=== PATIENT | male | born 1955 | race African-American/Black ===

== ENCOUNTER 2017-03-22 10:21 | Emergency (ER) | payer MEDICAID, OTHER ==
[~2017-03-22] VITALS: Ht 175.3 cm; Wt 80.0 kg
[~2017-03-22 10:21] MED LIST: ALLOPURINOL; AMLO10TA80 PO; ASPI-1073 PO; BENADRYL; DIPH25CA83 PO; HYDR-4134 PO; IBUPROFEN; INDOCIN; LISI40TA4 PO; LISINOPRIL PO; NAPROXEN
[2017-03-22] MEDS ORDERED: MORPHINE SULFATE 4 MG/ML CPJ (NOT FOR IM USE) IV STA (10:44)
[2017-03-22] MEDS ORDERED: ONDANSETRON HCL 4MG/2ML VIAL IV STA (10:44)
[2017-03-22] MEDS ORDERED: SODIUM CHLORIDE 0.9% 1,000 ML IV ONE (10:44)
[2017-03-22] MEDS ORDERED: FAMOTIDINE 20MG/2ML VIAL IV ONE (11:00)
[2017-03-22] MEDS ORDERED: PANTOPRAZOLE SODIUM 40 MG/VIAL IV ONE (11:00)
[2017-03-22 11:02] LABS: BASOPHILS % 0.8 % (0.0-2.0); HEMATOCRIT. 40.8 % (42.0-52.0); HEMOGLOBIN. 13.6 g/dL (14.0-18.0); LYMPHOCYTES % 12.5 % (20.0-50.0); MEAN CORPUSCULAR HEMOGLOBIN 27.2 pg (28.0-32.0); MEAN CORPUSCULAR VOLUME 81.7 fL (80.0-94.0); MEAN PLATELET VOLUME 8.1 fl (7.4-10.4); NEUTROPHILS % 81.7 % (40.0-76.0); PLATELET 246 x1000/uL (130-400); RED BLOOD CELL COUNT 4.99 mill/uL (4.7-6.1); RED CELL DISTRIBUTION WIDTH 14.2 % (11.6-14.6)
[2017-03-22 11:07] LABS: INR 1.1; PARTIAL THROMBOPLASTIN TIME 25.8 sec (24.0-34.0); PROTHROMBIN TIME 10.9 sec
[2017-03-22 11:15] LABS: CARBON DIOXIDE 23 mEq/L (21-32); CHLORIDE 103 mEq/L (98-107)
[2017-03-22] MEDS ORDERED: POTASSIUM CHLORIDE 20MEQ TABLET SR PO ONE (11:45)
[2017-03-22 12:04] LABS: CLARITY URINE CLEAR (CLEAR); COLOR URINE YELLOW (YELLOW); GLUCOSE URINE NEGATIVE (NEGATIVE); KETONES URINE 1+ (NEGATIVE); LEUKOCYTE ESTERASE URINE NEGATIVE (NEGATIVE); NITRITE URINE NEGATIVE (NEGATIVE); OCCULT BLOOD URINE NEGATIVE (NEGATIVE); PH URINE >=9.0 (4.5-8.0); PROTEIN URINE NEGATIVE (NEGATIVE); UROBILINOGEN URINE 0.2 E.U./dL (0.2-1.0)
[2017-03-22] MEDS ORDERED: MORPHINE SULFATE 4 MG/ML CPJ (NOT FOR IM USE) IV ONE (12:30)
[2017-03-22 15:05] VITALS: BP 148/60
== END 2017-03-22 15:38 | disposition home or self-care (01) ==
LOC: ER 10:22
DX: R10.9 Unspecified abdominal pain (principal); I10 Essential (primary) hypertension; Z79.82 Long term (current) use of aspirin
CPT/HCPCS: 36415; 71010; 74176; 76700; 80053; 81003; 83690; 85025; 85610; 85730; 93005; 96374; 96375; 96376; 99285; C9113; J2270; J2405; J3490; J7030; Z7610

== ENCOUNTER 2017-04-10 08:35 | Emergency (ER) | payer MEDICAID, OTHER ==
[~2017-04-10] VITALS: Ht 172.7 cm; Wt 60.0 kg
[2017-04-10] MEDS ORDERED: MORPHINE SULFATE 4 MG/ML CPJ (NOT FOR IM USE) IV STA ×2 (09:08→10:33)
[2017-04-10] MEDS ORDERED: ONDANSETRON HCL 4MG/2ML VIAL IV STA ×2 (09:08→10:33)
[2017-04-10] MEDS ORDERED: SODIUM CHLORIDE 0.9% 1,000 ML IV ONE ×2 (09:08)
[2017-04-10 09:24] LABS: BASOPHILS % 0.5 % (0.0-2.0); EOSINOPHILS % 0.3 % (0.0-5.0); HEMATOCRIT. 38.9 % (42.0-52.0); HEMOGLOBIN. 13.1 g/dL (14.0-18.0); LYMPHOCYTES % 12.5 % (20.0-50.0); MEAN CORPUSCULAR HEMOGLOBIN 27.5 pg (28.0-32.0); MEAN CORPUSCULAR VOLUME 81.5 fL (80.0-94.0); MEAN PLATELET VOLUME 7.7 fl (7.4-10.4); MONOCYTES % 5.9 % (2.0-8.0); NEUTROPHILS % 80.8 % (40.0-76.0); PLATELET 259 x1000/uL (130-400); RED BLOOD CELL COUNT 4.78 mill/uL (4.7-6.1); RED CELL DISTRIBUTION WIDTH 14.9 % (11.6-14.6)
[2017-04-10 09:32] LABS: INR 1.1; PROTHROMBIN TIME 11.1 sec
[2017-04-10 09:40] LABS: CARBON DIOXIDE 21 mEq/L (21-32); CHLORIDE 101 mEq/L (98-107)
[2017-04-10 10:22] LABS: CLARITY URINE CLEAR (CLEAR); COLOR URINE YELLOW (YELLOW); GLUCOSE URINE NEGATIVE (NEGATIVE); KETONES URINE TRACE (NEGATIVE); LEUKOCYTE ESTERASE URINE NEGATIVE (NEGATIVE); NITRITE URINE NEGATIVE (NEGATIVE); OCCULT BLOOD URINE NEGATIVE (NEGATIVE); PH URINE 8.5 (4.5-8.0); PROTEIN URINE NEGATIVE (NEGATIVE); SPECIFIC GRAVITY URINE 1.009 (1.005-1.030); UROBILINOGEN URINE 0.2 E.U./dL (0.2-1.0)
[2017-04-10 13:01] VITALS: BP 116/83
== END 2017-04-10 13:05 | disposition home or self-care (01) ==
LOC: ER 08:35
DX: R10.11 Right upper quadrant pain (principal); R10.13 Epigastric pain; R11.2 Nausea with vomiting, unspecified; I10 Essential (primary) hypertension; Z79.82 Long term (current) use of aspirin
CPT/HCPCS: 36415; 74176; 76705; 80053; 81003; 83690; 85025; 85610; 96361; 96374; 96375; 96376; 99285; J2270; J2405; J7030; Z7610

== ENCOUNTER 2017-05-03 11:47 | Emergency (ER) | payer OTHER ==
[~2017-05-03] VITALS: Ht 172.7 cm; Wt 75.0 kg
[2017-05-03] MEDS ORDERED: KETOROLAC 30MG/ML VIAL IV STA (12:09)
[2017-05-03] MEDS ORDERED: SODIUM CHLORIDE 0.9% 1,000 ML IV ONE (12:09)
[2017-05-03] MEDS ORDERED: ONDANSETRON HCL 4MG/2ML VIAL IV STA (12:09)
[2017-05-03 12:43] LABS: CLARITY URINE CLEAR (CLEAR); COLOR URINE YELLOW (YELLOW); GLUCOSE URINE NEGATIVE (NEGATIVE); KETONES URINE NEGATIVE (NEGATIVE); LEUKOCYTE ESTERASE URINE NEGATIVE (NEGATIVE); NITRITE URINE NEGATIVE (NEGATIVE); OCCULT BLOOD URINE NEGATIVE (NEGATIVE); PH URINE 8.5 (4.5-8.0); PROTEIN URINE NEGATIVE (NEGATIVE); SPECIFIC GRAVITY URINE 1.013 (1.005-1.030); UROBILINOGEN URINE 0.2 E.U./dL (0.2-1.0)
[2017-05-03 12:47] LABS: BASOPHILS % 0.4 % (0.0-2.0); EOSINOPHILS % 0.1 % (0.0-5.0); HEMATOCRIT. 40.4 % (42.0-52.0); HEMOGLOBIN. 13.6 g/dL (14.0-18.0); LYMPHOCYTES % 9.3 % (20.0-50.0); MEAN CORPUSCULAR HEMOGLOBIN 27.4 pg (28.0-32.0); MEAN CORPUSCULAR VOLUME 81.5 fL (80.0-94.0); MEAN PLATELET VOLUME 8.5 fl (7.4-10.4); MONOCYTES % 3.8 % (2.0-8.0); NEUTROPHILS % 86.4 % (40.0-76.0); PLATELET 263 x1000/uL (130-400); RED BLOOD CELL COUNT 4.96 mill/uL (4.7-6.1); RED CELL DISTRIBUTION WIDTH 16.2 % (11.6-14.6)
[2017-05-03 12:54] LABS: CHLORIDE 102 mEq/L (98-107)
[2017-05-03 12:56] LABS: INR 1.1; PROTHROMBIN TIME 11.2 sec
[2017-05-03 13:01] LABS: *AMPHETAMINES SCREEN URINE NEGATIVE (NEGATIVE); *BARBITURATES SCREEN URINE NEGATIVE (NEGATIVE); *BENZODIAZEPINES SCREEN URINE NEGATIVE (NEGATIVE); *COCAINE SCREEN URINE NEGATIVE (NEGATIVE); CANNABINOID URINE SCREEN PRESUMTIVE POSITIVE (NEGATIVE); METHADONE URINE SCREEN NEGATIVE (NEGATIVE); OPIATES URINE SCREEN NEGATIVE (NEGATIVE); PHENCYCLIDINE URINE SCREEN NEGATIVE (NEGATIVE)
[2017-05-03 13:01] LABS: CARBON DIOXIDE 20 mEq/L (21-32)
[2017-05-03] MEDS ORDERED: CAPSAICIN 0.075% CREAM 60GM TOP PRN (13:30)
[2017-05-03] MEDS ORDERED: POTASSIUM CHLORIDE 20MEQ TABLET SR PO ONE (15:00)
[2017-05-03] MEDS ORDERED: ONDANSETRON HCL 4MG/2ML VIAL IV ONE (15:00)
[2017-05-03 15:05] VITALS: BP 203/118
== END 2017-05-03 15:45 | disposition home or self-care (01) ==
LOC: ER 12:27
DX: R10.33 Periumbilical pain (principal); E87.6 Hypokalemia; K21.9 Gastro-esophageal reflux disease without esophagitis; I10 Essential (primary) hypertension; D72.829 Elevated white blood cell count, unspecified
CPT/HCPCS: 36415; 74176; 80053; 80305; 81003; 83690; 85025; 85610; 96361; 96374; 96375; 96376; 99285; J1885; J2405; J7030; Z7610

== ENCOUNTER 2017-05-03 16:02 | Emergency (ER) | payer OTHER | END 2017-05-03 19:00 | disposition left against medical advice (07) | LOC: ER 18:51 | DX: Z53.21 Procedure and treatment not carried out due to patient leaving prior to being seen by health care provider (principal) ==

== ENCOUNTER 2017-05-21 15:58 | Emergency (ER) | payer MEDICAID, OTHER ==
[~2017-05-21] VITALS: Ht 182.9 cm; Wt 91.0 kg
[2017-05-21] MEDS ORDERED: ONDANSETRON HCL 4MG/2ML VIAL IV ONE ×2 (17:15→19:30)
[2017-05-21 17:30] LABS: BASOPHILS % 0.7 % (0.0-2.0); HEMATOCRIT. 39.4 % (42.0-52.0); LYMPHOCYTES % 8.1 % (20.0-50.0); MEAN CORPUSCULAR HEMOGLOBIN 27.4 pg (28.0-32.0); MEAN CORPUSCULAR VOLUME 82.7 fL (80.0-94.0); MEAN PLATELET VOLUME 7.8 fl (7.4-10.4); MONOCYTES % 5.3 % (2.0-8.0); NEUTROPHILS % 85.9 % (40.0-76.0); PLATELET 260 x1000/uL (130-400); RED BLOOD CELL COUNT 4.77 mill/uL (4.7-6.1)
[2017-05-21 17:35] LABS: CHLORIDE 102 mEq/L (98-107)
[2017-05-21 17:44] LABS: CARBON DIOXIDE 21 mEq/L (21-32); ETHANOL BLOOD < 10 mg/dL
[2017-05-21 18:55] LABS: CLARITY URINE CLEAR (CLEAR); COLOR URINE YELLOW (YELLOW); GLUCOSE URINE NEGATIVE (NEGATIVE); KETONES URINE 1+ (NEGATIVE); LEUKOCYTE ESTERASE URINE NEGATIVE (NEGATIVE); NITRITE URINE NEGATIVE (NEGATIVE); OCCULT BLOOD URINE NEGATIVE (NEGATIVE); PROTEIN URINE 1+ (NEGATIVE); SPECIFIC GRAVITY URINE 1.014 (1.005-1.030); UROBILINOGEN URINE 0.2 E.U./dL (0.2-1.0)
[2017-05-21] MEDS ORDERED: OXYCODONE HCL/ACETAMINOPHEN 5/325MG TABLET PO ONE (19:00)
[2017-05-21 19:08] LABS: *AMPHETAMINES SCREEN URINE NEGATIVE (NEGATIVE); *BARBITURATES SCREEN URINE NEGATIVE (NEGATIVE); *BENZODIAZEPINES SCREEN URINE NEGATIVE (NEGATIVE); *COCAINE SCREEN URINE NEGATIVE (NEGATIVE); CANNABINOID URINE SCREEN PRESUMTIVE POSITIVE (NEGATIVE); METHADONE URINE SCREEN NEGATIVE (NEGATIVE); OPIATES URINE SCREEN NEGATIVE (NEGATIVE); PHENCYCLIDINE URINE SCREEN NEGATIVE (NEGATIVE)
[2017-05-21] MEDS ORDERED: MORPHINE SULFATE 4 MG/ML CPJ (NOT FOR IM USE) IV ONE (19:30)
[2017-05-21 21:37] VITALS: BP 140/100
== END 2017-05-21 21:46 | disposition home or self-care (01) ==
LOC: ER 16:16
DX: R56.9 Unspecified convulsions (principal); M54.9 Dorsalgia, unspecified; K21.9 Gastro-esophageal reflux disease without esophagitis; I10 Essential (primary) hypertension; Z79.82 Long term (current) use of aspirin
CPT/HCPCS: 36415; 70450; 72131; 80053; 80305; 81001; 82962; 85025; 96374; 96375; 96376; 99285; G0482; J2270; J2405; Z7610

== ENCOUNTER 2018-02-04 07:49 | Emergency (ER) | payer MEDICAID ==
[~2018-02-04] VITALS: Ht 172.7 cm; Wt 75.0 kg
[~2018-02-04 07:49] MED LIST changes: -ALLOPURINOL; -ASPI-1073 PO; -BENADRYL; -IBUPROFEN; -INDOCIN; +LEVO500T2 PO; -LISINOPRIL PO; -NAPROXEN; +OMEP20TA2 PO
[2018-02-04] MEDS ORDERED: ONDANSETRON HCL 4MG/2ML VIAL IV ONE (10:00)
[2018-02-04] MEDS ORDERED: FAMOTIDINE 20MG/2ML VIAL IV ONE (10:00)
[2018-02-04] MEDS ORDERED: SODIUM CHLORIDE 0.9% 1,000 ML IV ONE (10:00)
[2018-02-04 10:33] LABS: CHLORIDE 100 mEq/L (98-107)
[2018-02-04] MEDS ORDERED: MORPHINE SULFATE 4 MG/ML CPJ (NOT FOR IM USE) IV ONE (12:45)
[2018-02-04] MEDS ORDERED: POTASSIUM CHLORIDE 20MEQ TABLET SR PO ONE (13:30)
[2018-02-04 14:10] VITALS: BP 148/89
== END 2018-02-04 14:20 | disposition home or self-care (01) ==
LOC: ER 07:59
DX: K29.70 Gastritis, unspecified, without bleeding (principal); I10 Essential (primary) hypertension
CPT/HCPCS: 36415; 80048; 93005; 96361; 96374; 96375; 99285; J2270; J2405; J3490; J7030

== ENCOUNTER 2018-12-16 08:57 | Emergency (ER) | payer MEDICAID, OTHER ==
[~2018-12-16] VITALS: Ht 175.3 cm; Wt 86.0 kg
[2018-12-16] MEDS ORDERED: MORPHINE SULFATE 4 MG/ML CPJ (NOT FOR IM USE) IV STA (09:47)
[2018-12-16] MEDS ORDERED: FAMOTIDINE 20MG/2ML VIAL IV STA (09:47)
[2018-12-16] MEDS ORDERED: SODIUM CHLORIDE 0.9% 1,000 ML IV ONE ×2 (09:47→12:35)
[2018-12-16] MEDS ORDERED: ONDANSETRON HCL 4MG/2ML INJ IV STA (09:47)
[2018-12-16 10:03] LABS: BASOPHILS % 1.2 % (0.0-2.0); EOSINOPHILS % 0.2 % (0.0-5.0); HEMATOCRIT. 38.8 % (42.0-52.0); HEMOGLOBIN. 12.8 g/dL (14.0-18.0); LYMPHOCYTES % 14.1 % (20.0-50.0); MEAN CORPUSCULAR HEMOGLOBIN 28.3 pg (28.0-32.0); MEAN CORPUSCULAR VOLUME 85.5 fL (80.0-94.0); MEAN PLATELET VOLUME 7.9 fl (7.4-10.4); MONOCYTES % 6.3 % (2.0-8.0); NEUTROPHILS % 78.2 % (40.0-76.0); PLATELET 239 x1000/uL (130-400); RED BLOOD CELL COUNT 4.54 mill/uL (4.7-6.1)
[2018-12-16 10:07] LABS: CHLORIDE 104 mEq/L (98-107)
[2018-12-16 10:09] LABS: INR 1.1; PROTHROMBIN TIME 10.6 sec (9.1-11.1)
[2018-12-16] MEDS ORDERED: AMLODIPINE 10MG TABLET PO ONE (10:45)
[2018-12-16] MEDS ORDERED: ONDANSETRON HCL 4MG/2ML INJ IV ONE (11:45)
[2018-12-16 19:17] VITALS: BP 143/70
== END 2018-12-16 19:14 | disposition left against medical advice (07) ==
LOC: ER 08:57 → EDBEDREQTM 12:36 → EDBEDREQ 12:36 → EDBEDREQSVC 13:06 → EDBEDREQ 13:09 → EDBEDREQSVC 13:09 → EDBEDREQTM 13:09 → ER 19:14 → CANBEDREQ 19:49
DX: R11.10 Vomiting, unspecified (principal); R10.13 Epigastric pain; I10 Essential (primary) hypertension; E78.00 Pure hypercholesterolemia, unspecified; R00.1 Bradycardia, unspecified
CPT/HCPCS: 36415; 80053; 83690; 85025; 85610; 93005; 96361; 96374; 96375; 96376; 99284; J2270; J2405; J3490; J7030; Z7610

== ENCOUNTER 2019-02-04 08:58 | Emergency (ER) | payer MEDICAID ==
[~2019-02-04] VITALS: Ht 177.8 cm; Wt 78.0 kg
[2019-02-04] MEDS ORDERED: ONDANSETRON HCL 4MG/2ML INJ IV STA (09:52)
[2019-02-04] MEDS ORDERED: MORPHINE SULFATE 4 MG/ML CPJ (NOT FOR IM USE) IV STA (09:52)
[2019-02-04] MEDS ORDERED: SODIUM CHLORIDE 0.9% 1,000 ML IV ONE (09:52)
[2019-02-04] MEDS ORDERED: HYDRALAZINE 20MG/ML VIAL IV ONE (10:00)
[2019-02-04 10:02] LABS: BASOPHILS % 0.5 % (0.0-2.0); EOSINOPHILS % 0.2 % (0.0-5.0); HEMATOCRIT. 42.9 % (42.0-52.0); HEMOGLOBIN. 14.2 g/dL (14.0-18.0); MEAN CORPUSCULAR HEMOGLOBIN 28.2 pg (28.0-32.0); MEAN CORPUSCULAR VOLUME 85.4 fL (80.0-94.0); MEAN PLATELET VOLUME 8.2 fl (7.4-10.4); MONOCYTES % 5.5 % (2.0-8.0); NEUTROPHILS % 74.8 % (40.0-76.0); PLATELET 305 x1000/uL (130-400); RED BLOOD CELL COUNT 5.03 mill/uL (4.7-6.1)
[2019-02-04 10:06] LABS: CLARITY URINE CLEAR (CLEAR); COLOR URINE YELLOW (YELLOW); KETONES URINE NEGATIVE (NEGATIVE); LEUKOCYTE ESTERASE URINE NEGATIVE (NEGATIVE); NITRITE URINE NEGATIVE (NEGATIVE); OCCULT BLOOD URINE NEGATIVE (NEGATIVE); PH URINE 8.5 (4.5-8.0); PROTEIN URINE NEGATIVE (NEGATIVE); SPECIFIC GRAVITY URINE 1.009 (1.005-1.030); UROBILINOGEN URINE 0.2 E.U./dL (0.2-1.0)
[2019-02-04 10:21] LABS: *AMPHETAMINES SCREEN URINE NEGATIVE (NEGATIVE); *BARBITURATES SCREEN URINE NEGATIVE (NEGATIVE); *BENZODIAZEPINES SCREEN URINE NEGATIVE (NEGATIVE); *COCAINE SCREEN URINE NEGATIVE (NEGATIVE); METHADONE URINE SCREEN NEGATIVE (NEGATIVE); OPIATES URINE SCREEN NEGATIVE (NEGATIVE)
[2019-02-04 10:22] LABS: CANNABINOID URINE SCREEN PRESUMTIVE POSITIVE (NEGATIVE); PHENCYCLIDINE URINE SCREEN NEGATIVE (NEGATIVE)
[2019-02-04 10:22] LABS: CHLORIDE 102 mEq/L (98-107)
[2019-02-04] MEDS ORDERED: CLONIDINE 0.1MG TABLET PO ONE (12:15)
[2019-02-04 13:11] VITALS: BP 193/85
== END 2019-02-04 13:31 | disposition home or self-care (01) ==
LOC: ER 08:58
DX: R11.2 Nausea with vomiting, unspecified (principal); R10.84 Generalized abdominal pain; E78.00 Pure hypercholesterolemia, unspecified; I10 Essential (primary) hypertension; Z79.899 Other long term (current) drug therapy
CPT/HCPCS: 36415; 74176; 80053; 80305; 81003; 83690; 85025; 96361; 96374; 96375; 99284; J0360; J2270; J2405; J7030

== ENCOUNTER 2019-02-24 09:09 | Emergency (ER) | payer MEDICAID ==
[~2019-02-24] VITALS: Ht 167.6 cm; Wt 77.0 kg
[2019-02-24] MEDS ORDERED: FAMOTIDINE 20MG/2ML VIAL IV STA (10:13)
[2019-02-24] MEDS ORDERED: MORPHINE SULFATE 4 MG/ML CPJ (NOT FOR IM USE) IV STA (10:13)
[2019-02-24] MEDS ORDERED: METOCLOPRAMIDE HCL 10MG/2ML VIAL IV STA (10:13)
[2019-02-24] MEDS ORDERED: MAGNESIUM/ALUMINUM HYDROXIDE/SIMETHICONE 30ML UDC PO STA (10:13)
[2019-02-24] MEDS ORDERED: SODIUM CHLORIDE 0.9% 1,000 ML IV ONE (10:13)
[2019-02-24 10:59] LABS: BASOPHILS % 0.5 % (0.0-2.0); HEMATOCRIT. 41.8 % (42.0-52.0); MEAN CORPUSCULAR HEMOGLOBIN 28.5 pg (28.0-32.0); MEAN CORPUSCULAR VOLUME 85.3 fL (80.0-94.0); MEAN PLATELET VOLUME 8.5 fl (7.4-10.4); MONOCYTES % 3.8 % (2.0-8.0); NEUTROPHILS % 85.7 % (40.0-76.0); PLATELET 287 x1000/uL (130-400); RED CELL DISTRIBUTION WIDTH 14.6 % (11.6-14.6)
[2019-02-24] MEDS ORDERED: MORPHINE SULFATE 4 MG/ML CPJ (NOT FOR IM USE) IV ONE (11:00)
[2019-02-24 11:05] LABS: CHLORIDE 99 mEq/L (98-107)
[2019-02-24 11:07] LABS: CLARITY URINE CLEAR (CLEAR); COLOR URINE YELLOW (YELLOW); KETONES URINE NEGATIVE (NEGATIVE); LEUKOCYTE ESTERASE URINE NEGATIVE (NEGATIVE); NITRITE URINE NEGATIVE (NEGATIVE); OCCULT BLOOD URINE NEGATIVE (NEGATIVE); PH URINE >=9.0 (4.5-8.0); PROTEIN URINE TRACE (NEGATIVE); UROBILINOGEN URINE 0.2 E.U./dL (0.2-1.0)
[2019-02-24 11:07] LABS: PROTHROMBIN TIME 10.6 sec (9.6-11.0)
[2019-02-24 11:09] LABS: ETHANOL BLOOD < 10 mg/dL
[2019-02-24 11:30] VITALS: BP 233/118
[2019-02-24 11:44] LABS: *AMPHETAMINES SCREEN URINE NEGATIVE (NEGATIVE); *BARBITURATES SCREEN URINE NEGATIVE (NEGATIVE); *BENZODIAZEPINES SCREEN URINE NEGATIVE (NEGATIVE); *COCAINE SCREEN URINE NEGATIVE (NEGATIVE)
[2019-02-24 11:45] LABS: CANNABINOID URINE SCREEN PRESUMTIVE POSITIVE (NEGATIVE); METHADONE URINE SCREEN NEGATIVE (NEGATIVE); OPIATES URINE SCREEN NEGATIVE (NEGATIVE); PHENCYCLIDINE URINE SCREEN NEGATIVE (NEGATIVE)
[2019-02-24] MEDS ORDERED: IOHEXOL-300 100 ML BOTTLE ONE (14:31)
== END 2019-02-24 14:30 | disposition home or self-care (01) ==
LOC: ER 09:09 → CANBEDREQ 16:17
DX: R10.33 Periumbilical pain (principal); I10 Essential (primary) hypertension; E78.00 Pure hypercholesterolemia, unspecified; F17.210 Nicotine dependence, cigarettes, uncomplicated
CPT/HCPCS: 36415; 74177; 80053; 80305; 80320; 81003; 83605; 83690; 84484; 85025; 85610; 93005; 96361; 96374; 96375; 96376; 99284; J2270; J2765; J3490; J7030; Q9967; Z7610; G0480

== ENCOUNTER 2019-03-06 09:57 | Inpatient (IN) | payer MEDICAID, OTHER ==
[~2019-03-06] VITALS: Ht 167.6 cm; Wt 64.0 kg
[2019-03-06] MEDS ORDERED: SODIUM CHLORIDE 0.9% 1,000 ML IV ONE (10:20)
[2019-03-06] MEDS ORDERED: KETOROLAC 30MG/ML VIAL IV STA (10:20)
[2019-03-06] MEDS ORDERED: HYDRALAZINE 20MG/ML VIAL IV ONE (10:30)
[2019-03-06] MEDS ORDERED: FAMOTIDINE 20MG/2ML VIAL IV ONE ×2 (10:30→11:30)
[2019-03-06 11:23] LABS: BASOPHILS % 0.9 % (0.0-2.0); EOSINOPHILS % 0.1 % (0.0-5.0); HEMOGLOBIN. 13.4 g/dL (14.0-18.0); LYMPHOCYTES % 19.7 % (20.0-50.0); MEAN CORPUSCULAR HEMOGLOBIN 28.7 pg (28.0-32.0); MEAN CORPUSCULAR VOLUME 85.9 fL (80.0-94.0); MEAN PLATELET VOLUME 8.3 fl (7.4-10.4); MONOCYTES % 5.9 % (2.0-8.0); NEUTROPHILS % 73.4 % (40.0-76.0); PLATELET 256 x1000/uL (130-400); RED BLOOD CELL COUNT 4.66 mill/uL (4.7-6.1); RED CELL DISTRIBUTION WIDTH 14.5 % (11.6-14.6)
[2019-03-06 11:29] LABS: CHLORIDE 100 mEq/L (98-107)
[2019-03-06 11:32] LABS: PARTIAL THROMBOPLASTIN TIME 26.9 sec (23.4-31.0); PROTHROMBIN TIME 10.4 sec (9.6-11.0)
[2019-03-06 11:35] LABS: ETHANOL BLOOD < 10 mg/dL
[2019-03-06] MEDS ORDERED: KETOROLAC 15MG/ML VIAL IV ONE (11:45)
[2019-03-06 12:09] LABS: CLARITY URINE CLEAR (CLEAR); COLOR URINE YELLOW (YELLOW); KETONES URINE 1+ (NEGATIVE); LEUKOCYTE ESTERASE URINE NEGATIVE (NEGATIVE); NITRITE URINE NEGATIVE (NEGATIVE); OCCULT BLOOD URINE NEGATIVE (NEGATIVE); PROTEIN URINE NEGATIVE (NEGATIVE); SPECIFIC GRAVITY URINE 1.011 (1.005-1.030); UROBILINOGEN URINE 0.2 E.U./dL (0.2-1.0)
[2019-03-06 12:32] LABS: *COCAINE SCREEN URINE NEGATIVE (NEGATIVE)
[2019-03-06 12:33] LABS: *BARBITURATES SCREEN URINE NEGATIVE (NEGATIVE); CANNABINOID URINE SCREEN PRESUMTIVE POSITIVE (NEGATIVE); METHADONE URINE SCREEN NEGATIVE (NEGATIVE); OPIATES URINE SCREEN NEGATIVE (NEGATIVE); PHENCYCLIDINE URINE SCREEN NEGATIVE (NEGATIVE)
[2019-03-06 12:34] LABS: *AMPHETAMINES SCREEN URINE NEGATIVE (NEGATIVE); *BENZODIAZEPINES SCREEN URINE NEGATIVE (NEGATIVE)
[2019-03-06] MEDS ORDERED: ASPIRIN 325MG EC TABLET PO ONE (12:45)
[2019-03-06] MEDS ORDERED: ONDANSETRON HCL 4MG/2ML INJ IV ONE (13:00)
[2019-03-06] MEDS ORDERED: IOHEXOL-300 100 ML BOTTLE ONE (13:27)
[2019-03-06] MEDS ORDERED: MORPHINE SULFATE 4 MG/ML CPJ (NOT FOR IM USE) IV STA (13:57)
[2019-03-06] MEDS ORDERED: ONDANSETRON HCL 4MG/2ML INJ IV STA (13:57)
[2019-03-06] MEDS ORDERED: ACETAMINOPHEN 325MG TABLET PO PRN (15:30)
[2019-03-06] MEDS ORDERED: OMEPRAZOLE 20MG CAPSULE EXTENDED RELEASE PO SCH (15:30)
[2019-03-06] MEDS ORDERED: ONDANSETRON HCL 4MG/2ML INJ IV PRN (15:30)
[2019-03-06] MEDS ORDERED: MORPHINE SULFATE 2 MG/ML CPJ (NOT FOR IM USE) IV PRN (15:30)
[2019-03-06 23:00] VITALS: BP 158/74
[2019-03-06] MEDS ORDERED: AMLODIPINE 5MG TABLET PO SCH (23:36)
[2019-03-06] MEDS ORDERED: METOPROLOL TARTRATE 25MG TABLET PO SCH (23:37)
[2019-03-06 23:44] VITALS: BP 138/69
[2019-03-07 04:00] VITALS: BP 132/74
[2019-03-07] MEDS ORDERED: LISINOPRIL 40MG TABLET PO SCH (09:00)
[2019-03-07] MEDS ORDERED: ASPIRIN 81MG TABLET PO SCH (09:00)
[2019-03-07] MEDS ORDERED: ATORVASTATIN CALCIUM 20MG TABLET PO SCH (21:00)
== END 2019-03-07 08:33 | disposition left against medical advice (07) | DRG 199 ==
LOC: ER 09:57 → EDBEDREQ 11:27 → 7WST 13:13 → EDBEDREQ 13:22 → ENRESERV 22:07
PROVIDERS: ADMIT Internal Medicine; ATTEND Internal Medicine
DX: I16.0 Hypertensive urgency (principal); E87.1 Hypo-osmolality and hyponatremia; I24.9 Acute ischemic heart disease, unspecified; K52.9 Noninfective gastroenteritis and colitis, unspecified; E78.00 Pure hypercholesterolemia, unspecified; E78.5 Hyperlipidemia, unspecified; E87.6 Hypokalemia; I10 Essential (primary) hypertension; F12.90 Cannabis use, unspecified, uncomplicated; Z53.21 Procedure and treatment not carried out due to patient leaving prior to being seen by health care provider
CPT/HCPCS: 36415; 71045; 74177; 80305; 80320; 84484; 93005; 96374; 99285; J0360; J1885; J2270; J2405; J3490; J7030; Q9967; G0480

== ENCOUNTER 2019-05-05 09:44 | Inpatient (IN) | payer MEDICAID, OTHER ==
[~2019-05-05] VITALS: Ht 167.6 cm; Wt 59.0 kg
[2019-05-05] VITALS (34 sets, daily range): BP systolic 112–200; BP diastolic 25–95
[2019-05-05] MEDS ORDERED: MORPHINE SULFATE 4 MG/ML CPJ (NOT FOR IM USE) IV STA (10:08)
[2019-05-05] MEDS ORDERED: FAMOTIDINE 20MG/2ML VIAL IV STA (10:08)
[2019-05-05] MEDS ORDERED: ONDANSETRON HCL 4MG/2ML INJ IV STA (10:08)
[2019-05-05] MEDS ORDERED: LABETALOL 5MG/ML SYR 20 MG/4 ML SYRINGE IV ONE (10:30)
[2019-05-05 10:45] LABS: BASOPHILS % 1.2 % (0.0-2.0); EOSINOPHILS % 0.7 % (0.0-5.0); HEMATOCRIT. 38.9 % (42.0-52.0); HEMOGLOBIN. 13.3 g/dL (14.0-18.0); LYMPHOCYTES % 16.1 % (20.0-50.0); MEAN CORPUSCULAR HEMOGLOBIN 29.1 pg (28.0-32.0); MEAN CORPUSCULAR VOLUME 85.5 fL (80.0-94.0); MEAN PLATELET VOLUME 8.3 fl (7.4-10.4); MONOCYTES % 7.9 % (2.0-8.0); NEUTROPHILS % 74.1 % (40.0-76.0); PLATELET 205 x1000/uL (130-400); RED BLOOD CELL COUNT 4.55 mill/uL (4.7-6.1); RED CELL DISTRIBUTION WIDTH 15.2 % (11.6-14.6)
[2019-05-05 10:47] LABS: INR 1.1; PROTHROMBIN TIME 10.8 sec (9.6-11.0)
[2019-05-05 10:48] LABS: CHLORIDE 101 mEq/L (98-107)
[2019-05-05 10:51] LABS: ETHANOL BLOOD < 10 mg/dL
[2019-05-05] MEDS ORDERED: HYDRALAZINE 20MG/ML VIAL IV ONE (11:00)
[2019-05-05] MEDS ORDERED: ENALAPRIL 2.5MG/2ML VIAL 2ML IV ONE (12:00)
[2019-05-05 12:54] LABS: CLARITY URINE CLEAR (CLEAR); COLOR URINE YELLOW (YELLOW); KETONES URINE TRACE (NEGATIVE); LEUKOCYTE ESTERASE URINE NEGATIVE (NEGATIVE); NITRITE URINE NEGATIVE (NEGATIVE); OCCULT BLOOD URINE NEGATIVE (NEGATIVE); PH URINE 8.5 (4.5-8.0); PROTEIN URINE TRACE (NEGATIVE); SPECIFIC GRAVITY URINE 1.011 (1.005-1.030); UROBILINOGEN URINE 0.2 E.U./dL (0.2-1.0)
[2019-05-05] MEDS ORDERED: NICARDIPINE 40MG/200ML PREMIX 200 ML IV STA (13:24)
[2019-05-05 13:39] LABS: *AMPHETAMINES SCREEN URINE NEGATIVE (NEGATIVE); *BARBITURATES SCREEN URINE NEGATIVE (NEGATIVE); *BENZODIAZEPINES SCREEN URINE NEGATIVE (NEGATIVE); *COCAINE SCREEN URINE NEGATIVE (NEGATIVE); CANNABINOID URINE SCREEN PRESUMTIVE POSITIVE (NEGATIVE); METHADONE URINE SCREEN NEGATIVE (NEGATIVE); OPIATES URINE SCREEN PRESUMTIVE POSITIVE (NEGATIVE); PHENCYCLIDINE URINE SCREEN NEGATIVE (NEGATIVE)
[2019-05-05] MEDS ORDERED: KCL 10MEQ/50ML PREMIX 50 ML IV ONE (13:45)
[2019-05-05] MEDS ORDERED: HYDRALAZINE 20MG/ML VIAL IV PRN ×2 (14:00→17:00)
[2019-05-05] MEDS ORDERED: NITROGLYCERIN OINT 1GM/INCH UDPKT TD SCH (15:15)
[2019-05-05] MEDS ORDERED: GUAIFENESIN 200MG/10ML SUGAR FREE UDC PO PRN (17:00)
[2019-05-05] MEDS ORDERED: DIPHENHYDRAMINE 50MG/ML VIAL IV PRN (17:00)
[2019-05-05] MEDS ORDERED: MAGNESIUM/ALUMINUM HYDROXIDE/SIMETHICONE 30ML UDC PO PRN (17:00)
[2019-05-05] MEDS ORDERED: ENOXAPARIN 40MG/0.4ML SYR SUBCUT SCH (17:00)
[2019-05-05] MEDS ORDERED: NA PHOS,M-B/NA PHOS,DI-BA ENEMA 118ML PR PRN (17:00)
[2019-05-05] MEDS ORDERED: LORAZEPAM 2MG/ML CPJ IV PRN (17:00)
[2019-05-05] MEDS ORDERED: CLONIDINE 0.1MG TABLET PO PRN (17:00)
[2019-05-05] MEDS ORDERED: ACETAMINOPHEN 325MG TABLET PO PRN (17:00)
[2019-05-05] MEDS ORDERED: HYDROCODONE/ACETAMINOPHEN 10/325MG TABLET PO PRN (17:00)
[2019-05-05] MEDS ORDERED: DOCUSATE SODIUM 100MG CAPSULE PO PRN (17:00)
[2019-05-05] MEDS ORDERED: IPRATROPIUM/ALBUTEROL 0.5-3(2.5)MG/3ML NEB INH PRN (17:00)
[2019-05-05] MEDS: ONDANSETRON HCL 4MG/2ML INJ IV PRN (17:19)
[2019-05-05] MEDS: HYDROMORPHONE HCL/PF 2MG/ML CPJ IV PRN ×2 (17:20→20:59)
[2019-05-05] MEDS: NICARDIPINE 50 MG in SODIUM CHLORIDE 0.9% 230 ML IV PRN (19:56)
[2019-05-05] MEDS ORDERED: PIPERACILLIN/TAZ 3.375G PREMIX 50 ML IV SCH (20:00)
[2019-05-05] MEDS: PIPERACILLIN/TAZOBACTAM 3.375 G in DEXT 5% WATER 100 ML IV SCH (20:12)
[2019-05-05] MEDS: SODIUM CHLORIDE 0.9% INJ 3ML FLUSH IVF SCH (21:47)
[2019-05-05] MEDS: NITROGLYCERIN OINT 1GM/INCH UDPKT TD SCH (21:51)
[2019-05-05 23:30] LABS: CREATINE KINASE 89 IU/L (39-308)
[2019-05-05 23:31] LABS: CREATINE KINASE MB FRACTION 1.3 ng/mL (0.5-3.6)
[2019-05-06] VITALS (41 sets, daily range): BP systolic 110–186; BP diastolic 55–100
[2019-05-06] MEDS: NICARDIPINE 50 MG in SODIUM CHLORIDE 0.9% 230 ML IV PRN ×2 (01:05→07:20)
[2019-05-06] MEDS: ONDANSETRON HCL 4MG/2ML INJ IV PRN (01:22)
[2019-05-06] MEDS: PIPERACILLIN/TAZOBACTAM 3.375 G in DEXT 5% WATER 100 ML IV SCH (03:53)
[2019-05-06 05:57] LABS: BASOPHILS % 0.5 % (0.0-2.0); HEMATOCRIT. 36.1 % (42.0-52.0); HEMOGLOBIN. 12.2 g/dL (14.0-18.0); LYMPHOCYTES % 10.1 % (20.0-50.0); MEAN CORPUSCULAR HEMOGLOBIN 28.5 pg (28.0-32.0); MEAN CORPUSCULAR VOLUME 84.3 fL (80.0-94.0); MEAN PLATELET VOLUME 8.3 fl (7.4-10.4); MONOCYTES % 7.9 % (2.0-8.0); NEUTROPHILS % 81.5 % (40.0-76.0); PLATELET 209 x1000/uL (130-400); RED BLOOD CELL COUNT 4.29 mill/uL (4.7-6.1)
[2019-05-06 06:01] LABS: CHLORIDE 98 mEq/L (98-107)
[2019-05-06] MEDS: NITROGLYCERIN OINT 1GM/INCH UDPKT TD SCH (06:01)
[2019-05-06] MEDS: SODIUM CHLORIDE 0.9% INJ 3ML FLUSH IVF SCH (06:01)
[2019-05-06 06:10] LABS: LDL CHOLESTEROL 120 mg/dL (5-100)
[2019-05-06 06:11] LABS: CREATINE KINASE 85 IU/L (39-308); CREATINE KINASE MB FRACTION 1.3 ng/mL (0.5-3.6); HDL CHOLESTEROL 57 mg/dL (40-59)
[2019-05-06 06:13] LABS: T4 FREE 0.87 ng/dL (0.76-1.46)
[2019-05-06] MEDS ORDERED: ASPIRIN 81MG EC TABLET PO SCH (09:00)
[2019-05-06] MEDS ORDERED: POTASSIUM CHLORIDE 20MEQ TABLET SR PO NR (10:42)
[2019-05-06] MEDS ORDERED: LISINOPRIL 20MG TABLET PO SCH (10:43)
[2019-05-06] MEDS ORDERED: AMLODIPINE 10MG TABLET PO SCH (10:43)
[2019-05-06] MEDS ORDERED: HYDRALAZINE HCL 25MG TABLET PO SCH (14:00)
== END 2019-05-06 10:45 | disposition left against medical advice (07) | DRG 244 ==
LOC: ER 09:44 → EDBEDREQ 10:17 → CVICU 13:38 → EDBEDREQ 13:42 → EDBEDREQTM 13:43 → EDBEDREQSVC 13:45 → ENRESERV 13:55
PROVIDERS: ADMIT Internal Medicine; ATTEND Internal Medicine
DX: K57.90 Diverticulosis of intestine, part unspecified, without perforation or abscess without bleeding (principal); I11.0 Hypertensive heart disease with heart failure; R65.10 Systemic inflammatory response syndrome (SIRS) of non-infectious origin without acute organ dysfunction; E87.1 Hypo-osmolality and hyponatremia; I50.9 Heart failure, unspecified; E87.6 Hypokalemia; N40.0 Benign prostatic hyperplasia without lower urinary tract symptoms; D72.829 Elevated white blood cell count, unspecified; Z82.49 Family history of ischemic heart disease and other diseases of the circulatory system
CPT/HCPCS: 36415; 71045; 74176; 80061; 80305; 80320; 81003; 82550; 82553; 83880; 84439; 84443; 84484; 93005; 96374; 96375; 99291; J0360; J1170; J1650; J2060; J2270; J2405; J2543; J3480; J3490; J7050; J7060; G0480

== ENCOUNTER 2019-05-13 08:23 | Emergency (ER) | payer OTHER ==
[~2019-05-13] VITALS: Ht 172.7 cm; Wt 70.0 kg
[2019-05-13] MEDS ORDERED: SODIUM CHLORIDE 0.9% 1,000 ML IV ONE (09:23)
[2019-05-13] MEDS ORDERED: ONDANSETRON HCL 4MG/2ML INJ IV STA (09:23)
[2019-05-13] MEDS ORDERED: CLONIDINE 0.1MG TABLET PO ONE (09:30)
[2019-05-13 09:48] LABS: CLARITY URINE CLEAR (CLEAR); COLOR URINE YELLOW (YELLOW); KETONES URINE NEGATIVE (NEGATIVE); LEUKOCYTE ESTERASE URINE NEGATIVE (NEGATIVE); NITRITE URINE NEGATIVE (NEGATIVE); OCCULT BLOOD URINE NEGATIVE (NEGATIVE); PH URINE 8.5 (4.5-8.0); PROTEIN URINE NEGATIVE (NEGATIVE); SPECIFIC GRAVITY URINE 1.006 (1.005-1.030); UROBILINOGEN URINE 0.2 E.U./dL (0.2-1.0)
[2019-05-13 09:59] LABS: EOSINOPHILS % 0.4 % (0.0-5.0); HEMATOCRIT. 40.1 % (42.0-52.0); HEMOGLOBIN. 13.6 g/dL (14.0-18.0); LYMPHOCYTES % 20.7 % (20.0-50.0); MEAN CORPUSCULAR HEMOGLOBIN 28.8 pg (28.0-32.0); MEAN CORPUSCULAR VOLUME 85.1 fL (80.0-94.0); MEAN PLATELET VOLUME 8.2 fl (7.4-10.4); MONOCYTES % 6.3 % (2.0-8.0); NEUTROPHILS % 71.6 % (40.0-76.0); PLATELET 314 x1000/uL (130-400); RED BLOOD CELL COUNT 4.71 mill/uL (4.7-6.1)
[2019-05-13 10:02] LABS: CHLORIDE 98 mEq/L (98-107)
[2019-05-13] MEDS ORDERED: MORPHINE SULFATE 4 MG/ML CPJ (NOT FOR IM USE) IV ONE (10:15)
[2019-05-13] MEDS ORDERED: IOHEXOL-350 100 ML BOTTLE ONE (10:49)
[2019-05-13] MEDS ORDERED: LISINOPRIL 40MG TABLET PO ONE (11:45)
[2019-05-13 14:45] VITALS: BP 152/96
== END 2019-05-13 14:45 | disposition home or self-care (01) ==
LOC: ER 08:23
DX: K29.70 Gastritis, unspecified, without bleeding (principal); I10 Essential (primary) hypertension; Z79.899 Other long term (current) drug therapy
CPT/HCPCS: 36415; 71045; 71275; 74174; 80053; 81003; 83690; 84484; 85025; 93005; 96361; 96374; 96375; 99284; J2270; J2405; J7030; Q9967

== ENCOUNTER 2019-07-22 08:43 | Emergency (ER) | payer MEDICAID ==
[~2019-07-22] VITALS: Ht 177.8 cm; Wt 70.0 kg
[~2019-07-22 08:43] MED LIST changes: -LEVO500T2 PO; -LISI40TA4 PO
[2019-07-22] MEDS ORDERED: ONDANSETRON HCL 4MG/2ML INJ IV STA (08:57)
[2019-07-22] MEDS ORDERED: FAMOTIDINE 20MG/2ML VIAL IV STA (08:57)
[2019-07-22] MEDS ORDERED: SODIUM CHLORIDE 0.9% 1,000 ML IV ONE (08:57)
[2019-07-22] MEDS ORDERED: MORPHINE SULFATE 4 MG/ML CPJ (NOT FOR IM USE) IV STA (08:57)
[2019-07-22] MEDS ORDERED: HYDRALAZINE 20MG/ML VIAL IV ONE (09:00)
[2019-07-22 10:00] LABS: BASOPHILS % 0.9 % (0.0-2.0); EOSINOPHILS % 0.7 % (0.0-5.0); HEMATOCRIT. 39.2 % (42.0-52.0); HEMOGLOBIN. 13.4 g/dL (14.0-18.0); LYMPHOCYTES % 17.3 % (20.0-50.0); MEAN CORPUSCULAR VOLUME 85.2 fL (80.0-94.0); MONOCYTES % 6.8 % (2.0-8.0); NEUTROPHILS % 74.3 % (40.0-76.0); PLATELET 258 x1000/uL (130-400); RED CELL DISTRIBUTION WIDTH 15.4 % (11.6-14.6)
[2019-07-22 10:05] LABS: CLARITY URINE CLOUDY (CLEAR); COLOR URINE YELLOW (YELLOW); KETONES URINE NEGATIVE (NEGATIVE); LEUKOCYTE ESTERASE URINE NEGATIVE (NEGATIVE); NITRITE URINE NEGATIVE (NEGATIVE); OCCULT BLOOD URINE NEGATIVE (NEGATIVE); PH URINE >=9.0 (4.5-8.0); PROTEIN URINE NEGATIVE (NEGATIVE); SPECIFIC GRAVITY URINE 1.007 (1.005-1.030); UROBILINOGEN URINE 0.2 E.U./dL (0.2-1.0)
[2019-07-22 10:08] LABS: CHLORIDE 101 mEq/L (98-107)
[2019-07-22 10:13] LABS: ETHANOL BLOOD < 10 mg/dL
[2019-07-22 10:29] LABS: *AMPHETAMINES SCREEN URINE NEGATIVE (NEGATIVE); *BARBITURATES SCREEN URINE NEGATIVE (NEGATIVE); *BENZODIAZEPINES SCREEN URINE NEGATIVE (NEGATIVE); *COCAINE SCREEN URINE NEGATIVE (NEGATIVE); METHADONE URINE SCREEN NEGATIVE (NEGATIVE); OPIATES URINE SCREEN NEGATIVE (NEGATIVE)
[2019-07-22 10:30] LABS: CANNABINOID URINE SCREEN PRESUMTIVE POSITIVE (NEGATIVE); PHENCYCLIDINE URINE SCREEN NEGATIVE (NEGATIVE)
[2019-07-22 11:13] LABS: PROTHROMBIN TIME 10.7 sec (9.6-11.0)
[2019-07-22 12:16] VITALS: BP 167/76
== END 2019-07-22 12:47 | disposition home or self-care (01) ==
LOC: ER 08:43
DX: G89.29 Other chronic pain (principal); K21.9 Gastro-esophageal reflux disease without esophagitis; R11.2 Nausea with vomiting, unspecified; I10 Essential (primary) hypertension; Z79.899 Other long term (current) drug therapy
CPT/HCPCS: 36415; 71045; 80053; 80305; 80320; 81003; 83690; 84484; 85025; 85610; 93005; 96374; 96375; 99284; J0360; J2270; J2405; J3490; J7030; G0480

== ENCOUNTER 2019-09-18 10:44 | Emergency (ER) | payer MEDICAID ==
[~2019-09-18] VITALS: Ht 167.6 cm; Wt 68.0 kg
[2019-09-18] MEDS ORDERED: MAGNESIUM/ALUMINUM HYDROXIDE/SIMETHICONE 30ML UDC PO STA (11:12)
[2019-09-18] MEDS ORDERED: ONDANSETRON HCL 4MG/2ML INJ IV STA (11:12)
[2019-09-18] MEDS ORDERED: KETOROLAC 30MG/ML VIAL IV STA (11:12)
[2019-09-18] MEDS ORDERED: SODIUM CHLORIDE 0.9% 1,000 ML IV ONE (11:12)
[2019-09-18 12:07] LABS: BASOPHILS % 0.9 % (0.0-2.0); EOSINOPHILS % 0.3 % (0.0-5.0); HEMATOCRIT. 40.6 % (42.0-52.0); HEMOGLOBIN. 13.5 g/dL (14.0-18.0); LYMPHOCYTES % 15.2 % (20.0-50.0); MEAN CORPUSCULAR HEMOGLOBIN 28.7 pg (28.0-32.0); MEAN CORPUSCULAR VOLUME 86.3 fL (80.0-94.0); MEAN PLATELET VOLUME 7.8 fl (7.4-10.4); MONOCYTES % 8.9 % (2.0-8.0); NEUTROPHILS % 74.7 % (40.0-76.0); PLATELET 212 x1000/uL (130-400); RED BLOOD CELL COUNT 4.71 mill/uL (4.7-6.1); RED CELL DISTRIBUTION WIDTH 15.1 % (11.6-14.6)
[2019-09-18 12:14] LABS: CHLORIDE 101 mEq/L (98-107)
[2019-09-18 12:14] LABS: *AMPHETAMINES SCREEN URINE NEGATIVE (NEGATIVE); *BARBITURATES SCREEN URINE NEGATIVE (NEGATIVE); *BENZODIAZEPINES SCREEN URINE NEGATIVE (NEGATIVE); *COCAINE SCREEN URINE NEGATIVE (NEGATIVE); CANNABINOID URINE SCREEN PRESUMTIVE POSITIVE (NEGATIVE); METHADONE URINE SCREEN NEGATIVE (NEGATIVE); OPIATES URINE SCREEN NEGATIVE (NEGATIVE); PHENCYCLIDINE URINE SCREEN NEGATIVE (NEGATIVE)
[2019-09-18 12:17] LABS: ETHANOL BLOOD < 10 mg/dL
[2019-09-18] MEDS ORDERED: ONDANSETRON HCL 4MG/2ML INJ IV ONE (13:00)
[2019-09-18] MEDS ORDERED: HYDRALAZINE 20MG/ML VIAL IV ONE (13:00)
[2019-09-18] MEDS ORDERED: MORPHINE SULFATE 10 MG/ML CPJ IM ONE (16:15)
[2019-09-18 17:57] VITALS: BP 172/95
== END 2019-09-18 17:57 | disposition home or self-care (01) ==
LOC: ER 10:55
DX: R10.9 Unspecified abdominal pain (principal); I10 Essential (primary) hypertension; R11.2 Nausea with vomiting, unspecified; K21.9 Gastro-esophageal reflux disease without esophagitis; F17.210 Nicotine dependence, cigarettes, uncomplicated; Z79.899 Other long term (current) drug therapy
CPT/HCPCS: 36415; 74176; 80053; 80305; 80320; 83690; 85025; 93005; 96361; 96372; 96374; 96375; 96376; 99284; 99406; J0360; J1885; J2270; J2405; J7030; Z7610; G0480

== ENCOUNTER 2019-10-30 06:44 | Emergency (ER) | payer MEDICAID ==
[~2019-10-30] VITALS: Ht 177.8 cm; Wt 82.0 kg
[2019-10-30] MEDS ORDERED: ONDANSETRON HCL 4MG/2ML INJ IV STA (07:09)
[2019-10-30] MEDS ORDERED: SODIUM CHLORIDE 0.9% 1,000 ML IV ONE (07:09)
[2019-10-30 07:37] LABS: BASOPHILS % 0.9 % (0.0-2.0); EOSINOPHILS % 0.2 % (0.0-5.0); HEMATOCRIT. 41.2 % (42.0-52.0); HEMOGLOBIN. 13.5 g/dL (14.0-18.0); LYMPHOCYTES % 12.1 % (20.0-50.0); MEAN CORPUSCULAR HEMOGLOBIN 28.5 pg (28.0-32.0); MEAN PLATELET VOLUME 7.8 fl (7.4-10.4); MONOCYTES % 6.4 % (2.0-8.0); NEUTROPHILS % 80.4 % (40.0-76.0); PLATELET 271 x1000/uL (130-400); RED BLOOD CELL COUNT 4.73 mill/uL (4.7-6.1); RED CELL DISTRIBUTION WIDTH 14.7 % (11.6-14.6)
[2019-10-30 07:45] LABS: PROTHROMBIN TIME 9.9 sec (9.6-11.0)
[2019-10-30 07:48] LABS: CLARITY URINE CLEAR (CLEAR); COLOR URINE YELLOW (YELLOW); KETONES URINE NEGATIVE (NEGATIVE); LEUKOCYTE ESTERASE URINE NEGATIVE (NEGATIVE); NITRITE URINE NEGATIVE (NEGATIVE); OCCULT BLOOD URINE NEGATIVE (NEGATIVE); PH URINE 7.5 (4.5-8.0); PROTEIN URINE NEGATIVE (NEGATIVE); UROBILINOGEN URINE 0.2 E.U./dL (0.2-1.0)
[2019-10-30 08:07] LABS: CHLORIDE 100 mEq/L (98-107)
[2019-10-30] MEDS ORDERED: FAMOTIDINE 20MG/2ML VIAL IV STA (08:20)
[2019-10-30] MEDS ORDERED: MAGNESIUM/ALUMINUM HYDROXIDE/SIMETHICONE 30ML UDC PO STA (08:20)
[2019-10-30] MEDS ORDERED: VISCOUS LIDOCAINE 2% 15 ML UDC PO STA (08:20)
[2019-10-30] MEDS ORDERED: POTASSIUM CHLORIDE 20MEQ/PACKET PO ONE (08:30)
[2019-10-30] MEDS ORDERED: MORPHINE SULFATE 4 MG/ML CPJ (NOT FOR IM USE) IV ONE (08:30)
[2019-10-30] MEDS ORDERED: DICYCLOMINE HCL 10MG/ML 2ML AMP IM ONE (08:30)
[2019-10-30 10:00] VITALS: BP 197/98
== END 2019-10-30 10:05 | disposition home or self-care (01) ==
LOC: ER 06:44
DX: G89.29 Other chronic pain (principal); R11.2 Nausea with vomiting, unspecified; E87.6 Hypokalemia; D72.829 Elevated white blood cell count, unspecified; I10 Essential (primary) hypertension; Z79.899 Other long term (current) drug therapy
CPT/HCPCS: 36415; 80053; 81003; 83690; 85025; 85610; 96361; 96372; 96374; 96375; 99283; J0500; J2270; J2405; J3490; J7030; Z7610

== ENCOUNTER 2019-11-25 10:27 | Emergency (ER) | payer MEDICAID ==
[~2019-11-25] VITALS: Ht 175.3 cm; Wt 87.0 kg
[2019-11-25] MEDS ORDERED: KETOROLAC 30MG/ML VIAL IV STA (10:54)
[2019-11-25] MEDS ORDERED: ONDANSETRON HCL 4MG/2ML INJ IV STA (10:54)
[2019-11-25] MEDS ORDERED: SODIUM CHLORIDE 0.9% 1,000 ML IV ONE (10:54)
[2019-11-25] MEDS ORDERED: MAGNESIUM/ALUMINUM HYDROXIDE/SIMETHICONE 30ML UDC PO STA (10:54)
[2019-11-25] MEDS ORDERED: FAMOTIDINE 20MG/2ML VIAL IV STA (10:54)
[2019-11-25] MEDS ORDERED: HYDRALAZINE 20MG/ML VIAL IV ONE (11:00)
[2019-11-25 11:22] LABS: CLARITY URINE CLEAR (CLEAR); COLOR URINE YELLOW (YELLOW); KETONES URINE NEGATIVE (NEGATIVE); LEUKOCYTE ESTERASE URINE NEGATIVE (NEGATIVE); NITRITE URINE NEGATIVE (NEGATIVE); OCCULT BLOOD URINE NEGATIVE (NEGATIVE); PH URINE 8.5 (4.5-8.0); PROTEIN URINE NEGATIVE (NEGATIVE); UROBILINOGEN URINE 0.2 E.U./dL (0.2-1.0)
[2019-11-25 11:28] LABS: BASOPHILS % 0.5 % (0.0-2.0); HEMATOCRIT. 41.3 % (42.0-52.0); HEMOGLOBIN. 14.1 g/dL (14.0-18.0); LYMPHOCYTES % 11.5 % (20.0-50.0); MEAN CORPUSCULAR HEMOGLOBIN 29.4 pg (28.0-32.0); MEAN CORPUSCULAR VOLUME 86.4 fL (80.0-94.0); MEAN PLATELET VOLUME 8.5 fl (7.4-10.4); MONOCYTES % 4.7 % (2.0-8.0); NEUTROPHILS % 83.3 % (40.0-76.0); PLATELET 249 x1000/uL (130-400); RED BLOOD CELL COUNT 4.78 mill/uL (4.7-6.1); RED CELL DISTRIBUTION WIDTH 14.9 % (11.6-14.6)
[2019-11-25 11:30] LABS: CHLORIDE 101 mEq/L (98-107)
[2019-11-25 11:35] LABS: ETHANOL BLOOD < 10 mg/dL
[2019-11-25 11:52] LABS: PROTHROMBIN TIME 10.7 sec (9.6-11.0)
[2019-11-25 11:54] LABS: *AMPHETAMINES SCREEN URINE NEGATIVE (NEGATIVE); *BARBITURATES SCREEN URINE NEGATIVE (NEGATIVE); *BENZODIAZEPINES SCREEN URINE NEGATIVE (NEGATIVE)
[2019-11-25 11:55] LABS: *COCAINE SCREEN URINE NEGATIVE (NEGATIVE); METHADONE URINE SCREEN NEGATIVE (NEGATIVE)
[2019-11-25 11:57] LABS: CANNABINOID URINE SCREEN PRESUMTIVE POSITIVE (NEGATIVE); OPIATES URINE SCREEN NEGATIVE (NEGATIVE); PHENCYCLIDINE URINE SCREEN NEGATIVE (NEGATIVE)
[2019-11-25] MEDS ORDERED: ONDANSETRON HCL 4MG/2ML INJ IV ONE (12:15)
[2019-11-25 13:51] VITALS: BP 180/98
== END 2019-11-25 13:53 | disposition home or self-care (01) ==
LOC: ER 10:27
DX: I10 Essential (primary) hypertension (principal); K52.9 Noninfective gastroenteritis and colitis, unspecified; Z91.14 Patient's other noncompliance with medication regimen; F17.290 Nicotine dependence, other tobacco product, uncomplicated; K21.9 Gastro-esophageal reflux disease without esophagitis; Z79.899 Other long term (current) drug therapy
CPT/HCPCS: 36415; 80053; 80305; 80320; 81003; 83690; 85025; 85610; 96361; 96374; 96375; 96376; 99284; J0360; J1885; J2405; J3490; J7030; G0480

== ENCOUNTER 2020-01-14 05:24 | Emergency (ER) | payer MEDICAID ==
[~2020-01-14] VITALS: Ht 172.7 cm; Wt 73.0 kg
[2020-01-14] MEDS ORDERED: KETOROLAC 30MG/ML VIAL IV STA (05:38)
[2020-01-14] MEDS ORDERED: ONDANSETRON HCL 4MG/2ML INJ IV STA (05:38)
[2020-01-14] MEDS ORDERED: HYDRALAZINE 20MG/ML VIAL IV ONE ×2 (05:45→08:15)
[2020-01-14 06:09] LABS: BASOPHILS % 0.7 % (0.0-2.0); EOSINOPHILS % 0.7 % (0.0-5.0); HEMATOCRIT. 40.5 % (42.0-52.0); HEMOGLOBIN. 13.8 g/dL (14.0-18.0); LYMPHOCYTES % 32.7 % (20.0-50.0); MEAN CORPUSCULAR HEMOGLOBIN 29.4 pg (28.0-32.0); MEAN CORPUSCULAR VOLUME 86.2 fL (80.0-94.0); MONOCYTES % 9.4 % (2.0-8.0); NEUTROPHILS % 56.5 % (40.0-76.0); PLATELET 242 x1000/uL (130-400); RED BLOOD CELL COUNT 4.69 mill/uL (4.7-6.1); RED CELL DISTRIBUTION WIDTH 15.1 % (11.6-14.6)
[2020-01-14 06:12] LABS: CHLORIDE 100 mEq/L (98-107)
[2020-01-14 06:14] LABS: CLARITY URINE CLEAR (CLEAR); COLOR URINE YELLOW (YELLOW); KETONES URINE NEGATIVE (NEGATIVE); LEUKOCYTE ESTERASE URINE NEGATIVE (NEGATIVE); NITRITE URINE NEGATIVE (NEGATIVE); OCCULT BLOOD URINE NEGATIVE (NEGATIVE); PROTEIN URINE NEGATIVE (NEGATIVE); UROBILINOGEN URINE 0.2 E.U./dL (0.2-1.0)
[2020-01-14] MEDS ORDERED: FAMOTIDINE 20MG/2ML VIAL IV ONE (06:30)
[2020-01-14] MEDS ORDERED: MAGNESIUM/ALUMINUM HYDROXIDE/SIMETHICONE 30ML UDC PO ONE (06:30)
[2020-01-14] MEDS ORDERED: VISCOUS LIDOCAINE 2% 15 ML UDC PO ONE (06:30)
[2020-01-14 06:37] LABS: ETHANOL BLOOD < 10 mg/dL
[2020-01-14] MEDS ORDERED: METOCLOPRAMIDE HCL 10MG/2ML VIAL IV ONE (07:45)
[2020-01-14] MEDS ORDERED: MORPHINE SULFATE 4 MG/ML CPJ (NOT FOR IM USE) IV ONE (08:30)
[2020-01-14] MEDS ORDERED: ONDANSETRON HCL 4MG/2ML INJ IV ONE (08:30)
[2020-01-14 10:57] LABS: *AMPHETAMINES SCREEN URINE NEGATIVE (NEGATIVE); *BARBITURATES SCREEN URINE NEGATIVE (NEGATIVE); *BENZODIAZEPINES SCREEN URINE NEGATIVE (NEGATIVE); *COCAINE SCREEN URINE NEGATIVE (NEGATIVE); METHADONE URINE SCREEN NEGATIVE (NEGATIVE); OPIATES URINE SCREEN NEGATIVE (NEGATIVE)
[2020-01-14 10:58] LABS: CANNABINOID URINE SCREEN PRESUMTIVE POSITIVE (NEGATIVE); PHENCYCLIDINE URINE SCREEN NEGATIVE (NEGATIVE)
[2020-01-14] MEDS ORDERED: HYDRALAZINE HCL 100MG TABLET PO SCH (14:00)
[2020-01-14] MEDS ORDERED: ONDANSETRON HCL 4MG/2ML INJ IV PRN (14:00)
[2020-01-14] MEDS ORDERED: POTASSIUM CHLORIDE 20MEQ TABLET SR PO ONE (14:00)
[2020-01-14] MEDS ORDERED: ACETAMINOPHEN 325MG TABLET PO PRN (14:00)
[2020-01-14] MEDS ORDERED: HYDRALAZINE HCL 100MG TABLET PO ONE (16:00)
[2020-01-14] MEDS ORDERED: AMLODIPINE 5MG TABLET PO ONE (16:00)
[2020-01-14] MEDS ORDERED: MORPHINE SULFATE 2 MG/ML CPJ (NOT FOR IM USE) IV PRN (16:00)
[2020-01-14 17:00] VITALS: BP 155/78
[2020-01-14] MEDS ORDERED: AMLODIPINE 5MG TABLET PO SCH (21:00)
[2020-01-15] MEDS ORDERED: OMEPRAZOLE 20MG CAPSULE EXTENDED RELEASE PO SCH (07:50)
== END 2020-01-14 16:52 | disposition home or self-care (01) ==
LOC: ER 05:24 → EDBEDREQTM 10:36 → EDBEDREQ 10:36 → CANRESERV 14:50 → ENRESERV 14:50 → CANBEDREQ 16:49 → ER 16:52
DX: I16.0 Hypertensive urgency (principal); R10.13 Epigastric pain; E87.1 Hypo-osmolality and hyponatremia; E87.6 Hypokalemia; F12.90 Cannabis use, unspecified, uncomplicated
CPT/HCPCS: 36415; 70450; 71045; 74176; 80053; 80305; 80320; 81003; 83690; 83880; 84484; 85025; 93005; 96374; 96375; 96376; 99285; J0360; J1885; J2270; J2405; J2765; J3490; G0480

== ENCOUNTER 2020-02-19 12:12 | Emergency (ER) | payer MEDICAID ==
[~2020-02-19] VITALS: Ht 167.6 cm; Wt 59.0 kg
[2020-02-19] MEDS ORDERED: RANI-655 PO (12:19)
[2020-02-19] MEDS ORDERED: LISI10TA5 PO (12:19)
[2020-02-19] MEDS ORDERED: ATOR20TA PO (12:19)
[2020-02-19] MEDS ORDERED: AMLO5TAB4 PO (12:19)
[2020-02-19] MEDS ORDERED: MORPHINE SULFATE 4 MG/ML CPJ (NOT FOR IM USE) IV STA (12:27)
[2020-02-19] MEDS ORDERED: ONDANSETRON HCL 4MG/2ML INJ IV ONE (12:30)
[2020-02-19 13:11] LABS: BASOPHILS % 0.8 % (0.0-2.0); EOSINOPHILS % 0.1 % (0.0-5.0); HEMATOCRIT. 42.6 % (42.0-52.0); HEMOGLOBIN. 14.5 g/dL (14.0-18.0); LYMPHOCYTES % 13.9 % (20.0-50.0); MEAN CORPUSCULAR HEMOGLOBIN 29.3 pg (28.0-32.0); MEAN CORPUSCULAR VOLUME 86.3 fL (80.0-94.0); MEAN PLATELET VOLUME 8.4 fl (7.4-10.4); MONOCYTES % 4.9 % (2.0-8.0); NEUTROPHILS % 80.3 % (40.0-76.0); PLATELET 236 x1000/uL (130-400); RED BLOOD CELL COUNT 4.94 mill/uL (4.7-6.1); RED CELL DISTRIBUTION WIDTH 15.6 % (11.6-14.6)
[2020-02-19 14:13] LABS: CHLORIDE 102 mEq/L (98-107); PROTHROMBIN TIME 10.9 sec (9.6-11.0)
[2020-02-19 14:32] VITALS: BP 189/98
== END 2020-02-19 14:35 | disposition home or self-care (01) ==
LOC: ER 12:12
DX: R10.13 Epigastric pain (principal); R11.2 Nausea with vomiting, unspecified; K21.9 Gastro-esophageal reflux disease without esophagitis; I10 Essential (primary) hypertension; F17.290 Nicotine dependence, other tobacco product, uncomplicated; Z79.899 Other long term (current) drug therapy
CPT/HCPCS: 36415; 74176; 80053; 83690; 85025; 85610; 96374; 96375; 99284; J2270; J2405

== ENCOUNTER 2020-03-03 12:27 | Emergency (ER) | payer MEDICAID ==
[~2020-03-03] VITALS: Ht 170.2 cm; Wt 77.0 kg
[~2020-03-03 12:27] MED LIST changes: +AMLO5TAB4 PO; +ATOR20TA PO; +LISI10TA5 PO; +RANI-655 PO
[2020-03-03] MEDS ORDERED: KETOROLAC 30MG/ML VIAL IV STA (12:44)
[2020-03-03] MEDS ORDERED: SODIUM CHLORIDE 0.9% 1,000 ML IV ONE (12:44)
[2020-03-03] MEDS ORDERED: MAGNESIUM/ALUMINUM HYDROXIDE/SIMETHICONE 30ML UDC PO STA (12:44)
[2020-03-03] MEDS ORDERED: ONDANSETRON HCL 4MG/2ML INJ IV STA ×2 (12:44→14:57)
[2020-03-03 13:57] LABS: BASOPHILS % 0.7 % (0.0-2.0); EOSINOPHILS % 0.1 % (0.0-5.0); HEMATOCRIT. 39.2 % (42.0-52.0); HEMOGLOBIN. 13.4 g/dL (14.0-18.0); LYMPHOCYTES % 12.1 % (20.0-50.0); MEAN CORPUSCULAR HEMOGLOBIN 29.5 pg (28.0-32.0); MEAN CORPUSCULAR VOLUME 86.5 fL (80.0-94.0); MONOCYTES % 6.7 % (2.0-8.0); NEUTROPHILS % 80.4 % (40.0-76.0); PLATELET 265 x1000/uL (130-400); RED BLOOD CELL COUNT 4.53 mill/uL (4.7-6.1); RED CELL DISTRIBUTION WIDTH 15.4 % (11.6-14.6)
[2020-03-03 14:02] LABS: CHLORIDE 101 mEq/L (98-107)
[2020-03-03 14:05] LABS: PROTHROMBIN TIME 10.7 sec (9.6-11.0)
[2020-03-03 14:25] LABS: CLARITY URINE CLEAR (CLEAR); COLOR URINE YELLOW (YELLOW); KETONES URINE 1+ (NEGATIVE); LEUKOCYTE ESTERASE URINE NEGATIVE (NEGATIVE); NITRITE URINE NEGATIVE (NEGATIVE); OCCULT BLOOD URINE NEGATIVE (NEGATIVE); PH URINE 8.5 (4.5-8.0); PROTEIN URINE NEGATIVE (NEGATIVE); SPECIFIC GRAVITY URINE 1.012 (1.005-1.030); UROBILINOGEN URINE 0.2 E.U./dL (0.2-1.0)
[2020-03-03] MEDS ORDERED: MORPHINE SULFATE 4 MG/ML CPJ (NOT FOR IM USE) IV STA (14:57)
[2020-03-03] MEDS ORDERED: HYDRALAZINE 20MG/ML VIAL IV ONE (15:00)
[2020-03-03] MEDS ORDERED: AMLODIPINE 10MG TABLET PO ONE (16:45)
[2020-03-03 17:41] VITALS: BP 168/78
== END 2020-03-03 17:42 | disposition home or self-care (01) ==
LOC: ER 12:27
DX: R10.33 Periumbilical pain (principal); I16.0 Hypertensive urgency; K21.9 Gastro-esophageal reflux disease without esophagitis
CPT/HCPCS: 36415; 74176; 80053; 81003; 83690; 85025; 85610; 93005; 96374; 96375; 96376; 99285; J0360; J1885; J2270; J2405; J7030

== ENCOUNTER 2020-03-28 10:20 | Emergency (ER) | payer MEDICAID ==
[~2020-03-28] VITALS: Ht 177.8 cm; Wt 69.0 kg
[2020-03-28] MEDS ORDERED: SODIUM CHLORIDE 0.9% 1,000 ML IV ONE (10:36)
[2020-03-28] MEDS ORDERED: MORPHINE SULFATE 4 MG/ML CPJ (NOT FOR IM USE) IV STA (10:36)
[2020-03-28] MEDS ORDERED: ONDANSETRON HCL 4MG/2ML INJ IV STA (10:36)
[2020-03-28 11:05] LABS: BASOPHILS % 0.8 % (0.0-2.0); EOSINOPHILS % 0.2 % (0.0-5.0); HEMATOCRIT. 41.4 % (42.0-52.0); HEMOGLOBIN. 14.1 g/dL (14.0-18.0); LYMPHOCYTES % 18.7 % (20.0-50.0); MEAN CORPUSCULAR HEMOGLOBIN 28.8 pg (28.0-32.0); MEAN CORPUSCULAR VOLUME 84.7 fL (80.0-94.0); MEAN PLATELET VOLUME 7.8 fl (7.4-10.4); MONOCYTES % 7.2 % (2.0-8.0); NEUTROPHILS % 73.1 % (40.0-76.0); PLATELET 244 x1000/uL (130-400); RED BLOOD CELL COUNT 4.89 mill/uL (4.7-6.1)
[2020-03-28 11:17] LABS: CHLORIDE 103 mEq/L (98-107)
[2020-03-28] MEDS ORDERED: IOHEXOL-300 100 ML BOTTLE ONE ×2 (11:34→12:31)
[2020-03-28 11:58] LABS: PROTHROMBIN TIME 10.9 sec (9.6-11.0)
[2020-03-28 13:01] LABS: CLARITY URINE CLEAR (CLEAR); COLOR URINE YELLOW (YELLOW); KETONES URINE NEGATIVE (NEGATIVE); LEUKOCYTE ESTERASE URINE NEGATIVE (NEGATIVE); NITRITE URINE NEGATIVE (NEGATIVE); OCCULT BLOOD URINE NEGATIVE (NEGATIVE); PH URINE >=9.0 (4.5-8.0); PROTEIN URINE TRACE (NEGATIVE); SPECIFIC GRAVITY URINE 1.018 (1.005-1.030); UROBILINOGEN URINE 0.2 E.U./dL (0.2-1.0)
[2020-03-28] MEDS ORDERED: MORPHINE SULFATE 4 MG/ML CPJ (NOT FOR IM USE) IV ONE (14:45)
[2020-03-28] MEDS ORDERED: ONDANSETRON HCL 4MG/2ML INJ IV ONE (14:45)
[2020-03-28] MEDS ORDERED: ONDANSETRON HCL 4MG/2ML INJ IV PRN (15:30)
[2020-03-28] MEDS ORDERED: MORPHINE SULFATE 2 MG/ML CPJ (NOT FOR IM USE) IV PRN (15:30)
[2020-03-28] MEDS ORDERED: ACETAMINOPHEN 325MG TABLET PO PRN (15:30)
[2020-03-28] MEDS ORDERED: HYDRALAZINE 20MG/ML VIAL IV PRN (15:45)
[2020-03-28] MEDS ORDERED: CLONIDINE 0.1MG TABLET PO PRN (15:45)
[2020-03-28] MEDS ORDERED: HYDRALAZINE 20MG/ML VIAL IV SCH (16:00)
[2020-03-28] MEDS: PIPERACILLIN/TAZOBACTAM 3.375 G in DEXT 5% WATER 100 ML IV SCH ×2 (16:00→22:00)
[2020-03-28] MEDS ORDERED: LOSARTAN POTASSIUM 100 MG TABLET PO SCH (17:00)
[2020-03-28] MEDS ORDERED: NIFEDIPINE XL 90MG TAB PO SCH (17:00)
[2020-03-29] MEDS: PIPERACILLIN/TAZOBACTAM 3.375 G in DEXT 5% WATER 100 ML IV SCH (04:00)
[2020-03-29] MEDS ORDERED: PANTOPRAZOLE SODIUM 40 MG/VIAL IV SCH (09:00)
[2020-03-29] MEDS ORDERED: NIFEDIPINE XL 60MG TAB PO SCH (09:00)
[2020-03-29 09:27] VITALS: BP 144/70
== END 2020-03-29 09:32 | disposition left against medical advice (07) ==
LOC: ER 10:33 → EDBEDREQSVC 15:53 → ER 03-29 09:32 → CANBEDREQ 03-29 15:26
DX: R10.13 Epigastric pain (principal); I16.0 Hypertensive urgency; K29.70 Gastritis, unspecified, without bleeding; E87.1 Hypo-osmolality and hyponatremia; K21.9 Gastro-esophageal reflux disease without esophagitis; N40.0 Benign prostatic hyperplasia without lower urinary tract symptoms; F12.10 Cannabis abuse, uncomplicated
CPT/HCPCS: 36415; 71045; 74177; 76705; 80053; 81003; 83605; 83690; 84484; 85025; 85610; 93005; 96361; 96365; 96366; 96375; 96376; 99285; J0360; J2270; J2405; J2543; J7030; J7060; Q9967; 96374

== ENCOUNTER 2020-07-27 11:14 | Emergency (ER) | payer OTHER ==
[~2020-07-27] VITALS: Ht 167.6 cm; Wt 80.0 kg
[~2020-07-27 11:14] MED LIST changes: -AMLO10TA80 PO
[2020-07-27] MEDS ORDERED: MORPHINE SULFATE 4 MG/ML CPJ (NOT FOR IM USE) IV ONE (13:00)
[2020-07-27] MEDS ORDERED: FAMOTIDINE 20MG/2ML VIAL IV ONE (13:00)
[2020-07-27 13:45] LABS: CLARITY URINE CLEAR (CLEAR); COLOR URINE YELLOW (YELLOW); KETONES URINE 1+ (NEGATIVE); LEUKOCYTE ESTERASE URINE NEGATIVE (NEGATIVE); NITRITE URINE NEGATIVE (NEGATIVE); OCCULT BLOOD URINE NEGATIVE (NEGATIVE); PH URINE >=9.0 (4.5-8.0); PROTEIN URINE TRACE (NEGATIVE); SPECIFIC GRAVITY URINE 1.012 (1.005-1.030); UROBILINOGEN URINE 0.2 E.U./dL (0.2-1.0)
[2020-07-27 14:09] LABS: BASOPHILS % 0.5 % (0.0-2.0); HEMATOCRIT. 40.9 % (42.0-52.0); HEMOGLOBIN. 13.5 g/dL (14.0-18.0); MEAN CORPUSCULAR VOLUME 87.7 fL (80.0-94.0); MEAN PLATELET VOLUME 7.7 fl (7.4-10.4); MONOCYTES % 4.2 % (2.0-8.0); NEUTROPHILS % 86.3 % (40.0-76.0); PLATELET 258 x1000/uL (130-400); RED BLOOD CELL COUNT 4.67 mill/uL (4.7-6.1)
[2020-07-27 14:36] LABS: CHLORIDE 101 mEq/L (98-107)
[2020-07-27] MEDS ORDERED: ONDANSETRON HCL 4MG/2ML INJ IV ONE (16:00)
[2020-07-27] MEDS ORDERED: CLONIDINE 0.2MG TABLET PO ONE (16:00)
[2020-07-27 16:32] LABS: INR 1.1; PROTHROMBIN TIME 11.3 sec (9.6-11.0)
[2020-07-27] MEDS ORDERED: NITROGLYCERIN OINT 1GM/INCH UDPKT TD ONE (17:15)
[2020-07-27 19:30] VITALS: BP 124/83
== END 2020-07-27 19:40 | disposition home or self-care (01) ==
LOC: ER 11:14
DX: K52.9 Noninfective gastroenteritis and colitis, unspecified (principal); I16.0 Hypertensive urgency; I10 Essential (primary) hypertension; K21.9 Gastro-esophageal reflux disease without esophagitis; F17.290 Nicotine dependence, other tobacco product, uncomplicated; Z79.899 Other long term (current) drug therapy
CPT/HCPCS: 36415; 80053; 81003; 83690; 85025; 85610; 93005; 96374; 96375; 99285; J2270; J2405; J3490; Z7610

== ENCOUNTER 2020-10-30 10:41 | Emergency (ER) | payer MEDICAID, OTHER ==
[~2020-10-30] VITALS: Ht 177.8 cm; Wt 85.0 kg
[2020-10-30] MEDS: FAMOTIDINE 20MG/2ML VIAL IV STA (11:43)
[2020-10-30] MEDS: MAGNESIUM/ALUMINUM HYDROXIDE/SIMETHICONE 30ML UDC PO STA (11:43)
[2020-10-30] MEDS: METOCLOPRAMIDE HCL 10MG/2ML VIAL IV STA (11:43)
[2020-10-30] MEDS: SODIUM CHLORIDE 0.9% 1,000 ML IV ONE (11:45)
[2020-10-30 13:00] VITALS: BP 175/85
[2020-10-30 13:03] LABS: CHLORIDE 100 mEq/L (98-107)
[2020-10-30] MEDS: HALOPERIDOL LACTATE 5MG/ML VIAL IM ONE (13:55)
== END 2020-10-30 14:04 | disposition left against medical advice (07) ==
LOC: ER 10:54
DX: R10.13 Epigastric pain (principal); R11.2 Nausea with vomiting, unspecified; R05 Cough; E86.0 Dehydration; I10 Essential (primary) hypertension; K21.9 Gastro-esophageal reflux disease without esophagitis; E87.2 Acidosis; Z98.890 Other specified postprocedural states; Z88.0 Allergy status to penicillin
CPT/HCPCS: 36415; 80053; 83605; 83690; 84484; 93005; 96361; 96372; 96374; 96375; 99284; J1630; J2765; J3490; J7030

== ENCOUNTER 2020-12-19 12:35 | Emergency (ER) | payer OTHER ==
[~2020-12-19] VITALS: Ht 175.3 cm; Wt 64.0 kg
[~2020-12-19 12:35] MED LIST changes: +LISI10TA26 PO; -LISI10TA5 PO
[2020-12-19] MEDS ORDERED: ONDANSETRON HCL 4MG/2ML INJ IV STA (13:10)
[2020-12-19] MEDS ORDERED: MORPHINE SULFATE 4 MG/ML CPJ (NOT FOR IM USE) IV STA (13:10)
[2020-12-19 13:26] LABS: BASOPHILS % 0.4 % (0.0-2.0); EOSINOPHILS % 0.1 % (0.0-5.0); HEMATOCRIT. 41.5 % (42.0-52.0); HEMOGLOBIN. 13.8 g/dL (14.0-18.0); LYMPHOCYTES % 9.7 % (20.0-50.0); MEAN CORPUSCULAR HEMOGLOBIN 28.4 pg (28.0-32.0); MEAN CORPUSCULAR VOLUME 85.6 fL (80.0-94.0); MEAN PLATELET VOLUME 7.9 fl (7.4-10.4); MONOCYTES % 4.8 % (2.0-8.0); PLATELET 254 x1000/uL (130-400); RED BLOOD CELL COUNT 4.84 mill/uL (4.7-6.1); RED CELL DISTRIBUTION WIDTH 15.3 % (11.6-14.6)
[2020-12-19 13:34] LABS: CHLORIDE 98 mEq/L (98-107)
[2020-12-19 14:28] VITALS: BP 206/104
[2020-12-19] MEDS ORDERED: OMEP20TA2 PO (15:42)
== END 2020-12-19 16:04 | disposition home or self-care (01) ==
LOC: ER 12:35
DX: R10.13 Epigastric pain (principal); K21.9 Gastro-esophageal reflux disease without esophagitis; I10 Essential (primary) hypertension; Z88.0 Allergy status to penicillin
CPT/HCPCS: 36415; 74176; 80053; 83690; 85025; 93005; 96374; 96375; 99284; J2270; J2405

== ENCOUNTER 2021-01-14 11:45 | Emergency (ER) | payer OTHER ==
[~2021-01-14] VITALS: Ht 172.7 cm; Wt 75.0 kg
[2021-01-14] MEDS ORDERED: MAGNESIUM/ALUMINUM HYDROXIDE/SIMETHICONE 30ML UDC PO STA (12:25)
[2021-01-14] MEDS ORDERED: KETOROLAC 30MG/ML VIAL IV STA (12:25)
[2021-01-14] MEDS ORDERED: FAMOTIDINE 20MG/2ML VIAL IV STA (12:25)
[2021-01-14] MEDS ORDERED: HYDRALAZINE 20MG/ML VIAL IV ONE (12:30)
[2021-01-14] MEDS ORDERED: SODIUM CHLORIDE 0.9% 1,000 ML IV ONE (12:30)
[2021-01-14 12:53] LABS: BASOPHILS % 0.5 % (0.0-2.0); HEMATOCRIT. 39.8 % (42.0-52.0); HEMOGLOBIN. 13.3 g/dL (14.0-18.0); LYMPHOCYTES % 8.1 % (20.0-50.0); MEAN CORPUSCULAR HEMOGLOBIN 28.6 pg (28.0-32.0); MEAN CORPUSCULAR VOLUME 85.3 fL (80.0-94.0); MEAN PLATELET VOLUME 7.4 fl (7.4-10.4); MONOCYTES % 8.1 % (2.0-8.0); NEUTROPHILS % 83.3 % (40.0-76.0); PLATELET 272 x1000/uL (130-400); RED BLOOD CELL COUNT 4.66 mill/uL (4.7-6.1); RED CELL DISTRIBUTION WIDTH 15.6 % (11.6-14.6)
[2021-01-14 13:00] LABS: CHLORIDE 95 mEq/L (98-107)
[2021-01-14 13:04] LABS: ETHANOL BLOOD < 10 mg/dL
[2021-01-14 14:52] LABS: CLARITY URINE CLEAR (CLEAR); KETONES URINE 2+ (NEGATIVE); LEUKOCYTE ESTERASE URINE NEGATIVE (NEGATIVE); NITRITE URINE NEGATIVE (NEGATIVE); OCCULT BLOOD URINE TRACE (NEGATIVE); PH URINE 7.5 (4.5-8.0); PROTEIN URINE NEGATIVE (NEGATIVE); SPECIFIC GRAVITY URINE 1.007 (1.005-1.030); UROBILINOGEN URINE 0.2 E.U./dL (0.2-1.0)
[2021-01-14 14:53] LABS: COLOR URINE PALE YELLOW (YELLOW)
[2021-01-14 15:13] LABS: *AMPHETAMINES SCREEN URINE NEGATIVE (NEGATIVE); *BARBITURATES SCREEN URINE NEGATIVE (NEGATIVE); *BENZODIAZEPINES SCREEN URINE NEGATIVE (NEGATIVE); *COCAINE SCREEN URINE NEGATIVE (NEGATIVE); METHADONE URINE SCREEN NEGATIVE (NEGATIVE); OPIATES URINE SCREEN NEGATIVE (NEGATIVE); PHENCYCLIDINE URINE SCREEN NEGATIVE (NEGATIVE)
[2021-01-14 15:14] LABS: CANNABINOID URINE SCREEN PRESUMTIVE POSITIVE (NEGATIVE)
[2021-01-14] MEDS ORDERED: FAMO-135 PO (15:26)
[2021-01-14] MEDS ORDERED: POTASSIUM CHLORIDE 20MEQ TABLET SR PO ONE (15:30)
[2021-01-14] MEDS ORDERED: KETOROLAC 15MG/ML VIAL IV ONE (15:30)
[2021-01-14 15:42] VITALS: BP 172/82
== END 2021-01-14 15:58 | disposition home or self-care (01) ==
LOC: ER 11:45
DX: R10.33 Periumbilical pain (principal); I10 Essential (primary) hypertension; F12.90 Cannabis use, unspecified, uncomplicated; D72.829 Elevated white blood cell count, unspecified; E87.1 Hypo-osmolality and hyponatremia; E87.6 Hypokalemia; Z79.899 Other long term (current) drug therapy
CPT/HCPCS: 36415; 71045; 74018; 80053; 80305; 80320; 81003; 83690; 85025; 93005; 96361; 96374; 96375; 99285; J0360; J1885; J3490; J7030; G0480

== ENCOUNTER 2021-01-25 10:19 | Emergency (ER) | payer OTHER ==
[~2021-01-25] VITALS: Ht 167.6 cm; Wt 60.0 kg
[~2021-01-25 10:19] MED LIST changes: +FAMO-135 PO
[2021-01-25] MEDS ORDERED: ONDANSETRON 4MG ODT PO ONE (11:45)
[2021-01-25] MEDS ORDERED: MAGNESIUM/ALUMINUM HYDROXIDE/SIMETHICONE 30ML UDC PO STA (12:13)
[2021-01-25 13:10] VITALS: BP 168/92
== END 2021-01-25 13:39 | disposition home or self-care (01) ==
LOC: ER 10:19
DX: R10.13 Epigastric pain (principal); F12.90 Cannabis use, unspecified, uncomplicated; I10 Essential (primary) hypertension; Z88.0 Allergy status to penicillin
CPT/HCPCS: 99283; Q0162

== ENCOUNTER 2021-02-19 11:53 | Emergency (ER) | payer OTHER ==
[~2021-02-19] VITALS: Ht 170.2 cm; Wt 77.0 kg
[2021-02-19] MEDS ORDERED: HALOPERIDOL LACTATE 5MG/ML VIAL IM ONE ×2 (12:15→16:15)
[2021-02-19] MEDS ORDERED: SODIUM CHLORIDE 0.9% 1,000 ML IV ONE (12:15)
[2021-02-19 14:44] LABS: HEMATOCRIT. 39.1 % (42.0-52.0); HEMOGLOBIN. 13.1 g/dL (14.0-18.0); MEAN CORPUSCULAR HEMOGLOBIN 28.9 pg (28.0-32.0); MEAN PLATELET VOLUME 7.1 fl (7.4-10.4); PLATELET 317 x1000/uL (130-400); RED BLOOD CELL COUNT 4.54 mill/uL (4.7-6.1); RED CELL DISTRIBUTION WIDTH 14.7 % (11.6-14.6)
[2021-02-19 14:50] LABS: CHLORIDE 101 mEq/L (98-107)
[2021-02-19] MEDS ORDERED: METOCLOPRAMIDE HCL 10MG TABLET PO ONE (15:45)
[2021-02-19 15:55] LABS: PLATELET ESTIMATE NORMAL
[2021-02-19] MEDS ORDERED: SODIUM CHLORIDE 0.9% 250 ML IV ONE (16:15)
[2021-02-19 18:03] VITALS: BP 186/92
[2021-02-19] MEDS ORDERED: METO-293 MT (18:48)
== END 2021-02-19 19:24 | disposition home or self-care (01) ==
LOC: ER 11:53
DX: R10.13 Epigastric pain (principal); R11.2 Nausea with vomiting, unspecified; F12.10 Cannabis abuse, uncomplicated; F17.200 Nicotine dependence, unspecified, uncomplicated; I11.9 Hypertensive heart disease without heart failure; Z98.890 Other specified postprocedural states; Z88.0 Allergy status to penicillin
CPT/HCPCS: 36415; 80053; 83690; 85025; 93005; 96360; 96361; 96372; 99284; J1630; J7030; J7050; J8597; Z7610

== ENCOUNTER 2021-02-28 12:35 | Emergency (ER) | payer MEDICAID, OTHER ==
[~2021-02-28] VITALS: Ht 177.8 cm; Wt 82.0 kg
[~2021-02-28 12:35] MED LIST changes: +METO-293 MT
[2021-02-28] MEDS ORDERED: ONDANSETRON HCL 4MG/2ML INJ IV STA (13:01)
[2021-02-28] MEDS ORDERED: MORPHINE SULFATE 4 MG/ML CPJ (NOT FOR IM USE) IV STA (13:01)
[2021-02-28 13:21] LABS: BASOPHILS % 0.7 % (0.0-2.0); HEMATOCRIT. 40.6 % (42.0-52.0); HEMOGLOBIN. 13.9 g/dL (14.0-18.0); MEAN CORPUSCULAR HEMOGLOBIN 28.9 pg (28.0-32.0); MEAN CORPUSCULAR VOLUME 84.6 fL (80.0-94.0); MEAN PLATELET VOLUME 7.9 fl (7.4-10.4); MONOCYTES % 5.1 % (2.0-8.0); NEUTROPHILS % 79.2 % (40.0-76.0); PLATELET 295 x1000/uL (130-400); RED CELL DISTRIBUTION WIDTH 14.9 % (11.6-14.6)
[2021-02-28 13:26] LABS: CHLORIDE 100 mEq/L (98-107)
[2021-02-28 14:57] LABS: PROTHROMBIN TIME 10.9 sec (9.6-11.0)
[2021-02-28] MEDS ORDERED: TOPUD PO (15:15)
[2021-02-28] MEDS ORDERED: ONDA4TAB5 PO (15:15)
[2021-02-28 15:30] VITALS: BP 191/84
== END 2021-02-28 15:43 | disposition home or self-care (01) ==
LOC: ER 12:35
DX: R10.13 Epigastric pain (principal); I11.9 Hypertensive heart disease without heart failure; F12.10 Cannabis abuse, uncomplicated; Z88.0 Allergy status to penicillin
CPT/HCPCS: 36415; 80053; 83690; 85025; 85610; 96374; 96375; 99284; J2270; J2405

== ENCOUNTER 2021-03-02 11:07 | Emergency (ER) | payer MEDICAID ==
[~2021-03-02] VITALS: Ht 175.3 cm; Wt 79.0 kg
[~2021-03-02 11:07] MED LIST changes: +ONDA4TAB5 PO; +TOPUD PO
[2021-03-02] MEDS ORDERED: ONDANSETRON HCL 4MG/2ML INJ IV STA (11:21)
[2021-03-02] MEDS ORDERED: MORPHINE SULFATE 4 MG/ML CPJ (NOT FOR IM USE) IV STA (11:21)
[2021-03-02] MEDS ORDERED: LORAZEPAM 2MG/ML CPJ IV ONE (11:30)
[2021-03-02] MEDS ORDERED: HYDRALAZINE 20MG/ML VIAL IV ONE (11:30)
[2021-03-02 11:37] LABS: BASOPHILS % 0.9 % (0.0-2.0); EOSINOPHILS % 0.1 % (0.0-5.0); HEMATOCRIT. 38.1 % (42.0-52.0); HEMOGLOBIN. 13.4 g/dL (14.0-18.0); LYMPHOCYTES % 19.7 % (20.0-50.0); MEAN CORPUSCULAR HEMOGLOBIN 29.4 pg (28.0-32.0); MEAN CORPUSCULAR VOLUME 83.8 fL (80.0-94.0); MEAN PLATELET VOLUME 7.7 fl (7.4-10.4); MONOCYTES % 7.7 % (2.0-8.0); NEUTROPHILS % 71.6 % (40.0-76.0); PLATELET 341 x1000/uL (130-400); RED BLOOD CELL COUNT 4.55 mill/uL (4.7-6.1); RED CELL DISTRIBUTION WIDTH 14.6 % (11.6-14.6)
[2021-03-02 11:45] LABS: PROTHROMBIN TIME 10.8 sec (9.6-11.0)
[2021-03-02] MEDS ORDERED: SODIUM CHLORIDE 0.9% 500 ML IV ONE (11:45)
[2021-03-02 12:15] LABS: CLARITY URINE CLEAR (CLEAR); KETONES URINE NEGATIVE (NEGATIVE); LEUKOCYTE ESTERASE URINE NEGATIVE (NEGATIVE); NITRITE URINE NEGATIVE (NEGATIVE); OCCULT BLOOD URINE TRACE (NEGATIVE); PH URINE 7.5 (4.5-8.0); PROTEIN URINE NEGATIVE (NEGATIVE); SPECIFIC GRAVITY URINE 1.005 (1.005-1.030); UROBILINOGEN URINE 0.2 E.U./dL (0.2-1.0)
[2021-03-02 12:17] LABS: COLOR URINE PALE YELLOW (YELLOW)
[2021-03-02 12:35] LABS: *AMPHETAMINES SCREEN URINE NEGATIVE (NEGATIVE)
[2021-03-02 12:36] LABS: *BARBITURATES SCREEN URINE NEGATIVE (NEGATIVE); *BENZODIAZEPINES SCREEN URINE NEGATIVE (NEGATIVE); *COCAINE SCREEN URINE NEGATIVE (NEGATIVE); METHADONE URINE SCREEN NEGATIVE (NEGATIVE); OPIATES URINE SCREEN NEGATIVE (NEGATIVE)
[2021-03-02 12:38] LABS: CANNABINOID URINE SCREEN PRESUMTIVE POSITIVE (NEGATIVE); PHENCYCLIDINE URINE SCREEN NEGATIVE (NEGATIVE)
[2021-03-02 13:20] LABS: CHLORIDE 98 mEq/L (98-107)
[2021-03-02 13:24] LABS: ETHANOL BLOOD < 10 mg/dL
[2021-03-02] MEDS ORDERED: OMEP20CA14 MT (15:14)
[2021-03-02] MEDS ORDERED: ONDA4TAB5 MT (15:14)
[2021-03-02 15:40] VITALS: BP 157/65
== END 2021-03-02 15:56 | disposition home or self-care (01) ==
LOC: ER 11:07
DX: R10.13 Epigastric pain (principal); R11.2 Nausea with vomiting, unspecified; I11.9 Hypertensive heart disease without heart failure; E11.9 Type 2 diabetes mellitus without complications; K21.9 Gastro-esophageal reflux disease without esophagitis; E78.00 Pure hypercholesterolemia, unspecified; Z98.890 Other specified postprocedural states; Z88.0 Allergy status to penicillin
CPT/HCPCS: 36415; 74176; 80053; 80305; 80320; 81003; 83690; 85025; 85610; 93005; 96361; 96374; 96375; 99285; J0360; J2060; J2270; J2405; J7040; G0480

== ENCOUNTER 2021-05-10 09:02 | Emergency (ER) | payer MEDICARE, MEDICAID ==
[~2021-05-10] VITALS: Ht 175.3 cm; Wt 91.0 kg
[~2021-05-10 09:02] MED LIST changes: +OMEP20CA14 MT; +ONDA4TAB5 MT
[2021-05-10] MEDS ORDERED: HALOPERIDOL LACTATE 5MG/ML VIAL IM ONE ×2 (09:30→11:15)
[2021-05-10 11:12] LABS: EOSINOPHILS % 0.1 % (0.0-5.0); HEMATOCRIT. 39.2 % (42.0-52.0); HEMOGLOBIN. 12.8 g/dL (14.0-18.0); MEAN CORPUSCULAR VOLUME 85.8 fL (80.0-94.0); MEAN PLATELET VOLUME 8.2 fl (7.4-10.4); MONOCYTES % 9.6 % (2.0-8.0); NEUTROPHILS % 70.3 % (40.0-76.0); PLATELET 288 x1000/uL (130-400); RED BLOOD CELL COUNT 4.57 mill/uL (4.7-6.1); RED CELL DISTRIBUTION WIDTH 15.3 % (11.6-14.6)
[2021-05-10 11:17] LABS: CHLORIDE 103 mEq/L (98-107)
[2021-05-10 15:32] VITALS: BP 198/90
== END 2021-05-10 15:43 | disposition home or self-care (01) ==
LOC: ER 09:08
DX: R10.9 Unspecified abdominal pain (principal); I10 Essential (primary) hypertension; Z88.0 Allergy status to penicillin
CPT/HCPCS: 36415; 80048; 80076; 83690; 85025; 93005; 96372; 99284; J1630; Z7610

== ENCOUNTER → 2021-05-24 | Outpatient (CLI) | payer MEDICARE, MEDICAID | END | disposition home or self-care (01) | LOC: CT 10:24 | DX: M54.16 Radiculopathy, lumbar region (principal); I70.0 Atherosclerosis of aorta | CPT/HCPCS: 72131 ==

== ENCOUNTER 2021-06-17 07:29 | Emergency (ER) | payer MEDICARE, MEDICAID ==
[~2021-06-17] VITALS: Ht 172.7 cm; Wt 68.0 kg
[2021-06-17] MEDS ORDERED: ONDANSETRON HCL 4MG/2ML INJ IV STA (07:33)
[2021-06-17] MEDS ORDERED: MORPHINE SULFATE 4 MG/ML CPJ (NOT FOR IM USE) IV STA (07:33)
[2021-06-17 08:44] LABS: BASOPHILS % 1.3 % (0.0-2.0); EOSINOPHILS % 0.4 % (0.0-5.0); HEMATOCRIT. 40.4 % (42.0-52.0); HEMOGLOBIN. 13.4 g/dL (14.0-18.0); MEAN CORPUSCULAR HEMOGLOBIN 28.4 pg (28.0-32.0); MEAN CORPUSCULAR VOLUME 85.6 fL (80.0-94.0); MONOCYTES % 7.9 % (2.0-8.0); NEUTROPHILS % 60.4 % (40.0-76.0); PLATELET 325 x1000/uL (130-400); RED BLOOD CELL COUNT 4.73 mill/uL (4.7-6.1); RED CELL DISTRIBUTION WIDTH 15.2 % (11.6-14.6)
[2021-06-17 08:45] LABS: CHLORIDE 102 mEq/L (98-107)
[2021-06-17 08:49] LABS: PROTHROMBIN TIME 10.3 sec (9.6-11.0)
[2021-06-17 08:56] LABS: CLARITY URINE CLEAR (CLEAR); COLOR URINE YELLOW (YELLOW); KETONES URINE NEGATIVE (NEGATIVE); LEUKOCYTE ESTERASE URINE NEGATIVE (NEGATIVE); NITRITE URINE NEGATIVE (NEGATIVE); OCCULT BLOOD URINE NEGATIVE (NEGATIVE); PROTEIN URINE NEGATIVE (NEGATIVE); SPECIFIC GRAVITY URINE 1.008 (1.005-1.030); UROBILINOGEN URINE 0.2 E.U./dL (0.2-1.0)
[2021-06-17] MEDS ORDERED: ONDANSETRON HCL 4MG/2ML INJ IV ONE (09:00)
[2021-06-17] MEDS ORDERED: MORPHINE SULFATE 4 MG/ML CPJ (NOT FOR IM USE) IV ONE (09:45)
[2021-06-17] MEDS ORDERED: MORPHINE SULFATE 2 MG/ML CPJ (NOT FOR IM USE) IV NR (10:30)
[2021-06-17] MEDS ORDERED: LABETALOL 5MG/ML SYR 20 MG/4 ML SYRINGE IV NR (14:30)
[2021-06-17] MEDS ORDERED: LABETALOL 5MG/ML SYR 20 MG/4 ML SYRINGE IV ONE (14:30)
[2021-06-17 14:33] VITALS: BP 211/112
== END 2021-06-17 15:04 | disposition short-term general hospital (02) ==
LOC: ER 07:29
DX: R10.84 Generalized abdominal pain (principal); F12.10 Cannabis abuse, uncomplicated; I10 Essential (primary) hypertension; Z88.0 Allergy status to penicillin; Z79.899 Other long term (current) drug therapy; Z98.890 Other specified postprocedural states
CPT/HCPCS: 36415; 80053; 81003; 83690; 85025; 85610; 96374; 96375; 96376; 99285; J2270; J2405; J3490

== ENCOUNTER 2021-07-30 10:10 | Emergency (ER) | payer MEDICARE, MEDICAID ==
[~2021-07-30] VITALS: Ht 165.1 cm; Wt 79.0 kg
[2021-07-30] MEDS ORDERED: HALOPERIDOL LACTATE 5MG/ML VIAL IM ONE ×2 (10:45→16:45)
[2021-07-30 15:04] LABS: HEMATOCRIT. 39.1 % (42.0-52.0); HEMOGLOBIN. 13.2 g/dL (14.0-18.0); MEAN CORPUSCULAR HEMOGLOBIN 28.8 pg (28.0-32.0); MEAN CORPUSCULAR VOLUME 85.7 fL (80.0-94.0); MEAN PLATELET VOLUME 7.9 fl (7.4-10.4); PLATELET 294 x1000/uL (130-400); RED BLOOD CELL COUNT 4.56 mill/uL (4.7-6.1); RED CELL DISTRIBUTION WIDTH 15.2 % (11.6-14.6)
[2021-07-30 15:21] LABS: CHLORIDE 100 mEq/L (98-107)
[2021-07-30 16:22] LABS: PLATELET ESTIMATE NORMAL
[2021-07-30 18:00] VITALS: BP 170/90
== END 2021-07-30 18:25 | disposition home or self-care (01) ==
LOC: ER 10:10 → CANBEDREQ 22:10
DX: R11.2 Nausea with vomiting, unspecified (principal); I10 Essential (primary) hypertension; Z79.899 Other long term (current) drug therapy; Z88.0 Allergy status to penicillin
CPT/HCPCS: 36415; 80048; 80076; 83690; 84484; 85025; 96372; 99284; J1630; Z7610; A4315

== ENCOUNTER 2021-08-14 07:24 | Inpatient (IN) | payer MEDICARE, OTHER ==
[~2021-08-14] VITALS: Ht 167.6 cm; Wt 55.4 kg
[2021-08-14] MEDS ORDERED: MORPHINE SULFATE 4 MG/ML CPJ (NOT FOR IM USE) IV STA (07:49)
[2021-08-14] MEDS ORDERED: ONDANSETRON HCL 4MG/2ML INJ IV STA (07:49)
[2021-08-14] MEDS ORDERED: SODIUM CHLORIDE 0.9% 1,000 ML IV ONE (08:00)
[2021-08-14 08:41] LABS: BASOPHILS % 1.1 % (0.0-2.0); EOSINOPHILS % 0.2 % (0.0-5.0); HEMATOCRIT. 39.9 % (42.0-52.0); HEMOGLOBIN. 13.2 g/dL (14.0-18.0); LYMPHOCYTES % 17.7 % (20.0-50.0); MEAN CORPUSCULAR HEMOGLOBIN 28.2 pg (28.0-32.0); MEAN CORPUSCULAR VOLUME 85.2 fL (80.0-94.0); MEAN PLATELET VOLUME 7.9 fl (7.4-10.4); MONOCYTES % 8.4 % (2.0-8.0); NEUTROPHILS % 72.6 % (40.0-76.0); PLATELET 355 x1000/uL (130-400); RED BLOOD CELL COUNT 4.67 mill/uL (4.7-6.1); RED CELL DISTRIBUTION WIDTH 15.3 % (11.6-14.6)
[2021-08-14 08:44] LABS: CHLORIDE 100 mEq/L (98-107)
[2021-08-14 10:30] LABS: CLARITY URINE CLEAR (CLEAR); COLOR URINE YELLOW (YELLOW); KETONES URINE NEGATIVE (NEGATIVE); LEUKOCYTE ESTERASE URINE NEGATIVE (NEGATIVE); NITRITE URINE NEGATIVE (NEGATIVE); OCCULT BLOOD URINE NEGATIVE (NEGATIVE); PH URINE 8.5 (4.5-8.0); PROTEIN URINE NEGATIVE (NEGATIVE); SPECIFIC GRAVITY URINE 1.009 (1.005-1.030); UROBILINOGEN URINE 0.2 E.U./dL (0.2-1.0)
[2021-08-14] MEDS ORDERED: KETOROLAC 30MG/ML VIAL IV ONE (11:00)
[2021-08-14] MEDS ORDERED: HYDRALAZINE 20MG/ML VIAL IV ONE (12:15)
[2021-08-14] MEDS ORDERED: MORPHINE SULFATE 4 MG/ML CPJ (NOT FOR IM USE) IV ONE (13:30)
[2021-08-14 14:00] VITALS: BP 143/80
[2021-08-14] MEDS ORDERED: AMLO10TA80 MT (16:44)
[2021-08-14] MEDS ORDERED: DICY10SO PO ×2 (16:44→16:45)
[2021-08-14] MEDS ORDERED: LOSA100T32 MT (16:44)
[2021-08-14] MEDS ORDERED: OMEP10CA5 MT (16:44)
[2021-08-14] MEDS ORDERED: DICY10SO MT (16:44)
[2021-08-14] MEDS ORDERED: CIME800T MT (16:44)
[2021-08-14 16:58] VITALS: BP 143/80
[2021-08-14] MEDS ORDERED: ACETAMINOPHEN 325MG TABLET PO PRN (17:30)
[2021-08-14] MEDS ORDERED: SODIUM CHLORIDE 0.9% 1,000 ML IV SCH (17:30)
[2021-08-14] MEDS ORDERED: PIPERACILLIN/TAZ 3.375G PREMIX 50 ML IV SCH (17:30)
[2021-08-14] MEDS ORDERED: ONDANSETRON HCL 4MG/2ML INJ IV PRN (17:30)
[2021-08-14 17:57] VITALS: BP 143/80
[2021-08-14] MEDS ORDERED: AMLODIPINE 10MG TABLET PO SCH (18:00)
[2021-08-14] MEDS ORDERED: ATORVASTATIN CALCIUM 20MG TABLET PO SCH (18:00)
[2021-08-14] MEDS ORDERED: MORPHINE SULFATE 2 MG/ML CPJ (NOT FOR IM USE) IV PRN (18:00)
[2021-08-14] MEDS ORDERED: PANTOPRAZOLE SODIUM 40 MG/VIAL IV SCH (18:00)
[2021-08-14] MEDS ORDERED: HYDRALAZINE HCL 25MG TABLET PO SCH (18:00)
[2021-08-14] MEDS ORDERED: LISINOPRIL 10MG TABLET PO SCH (18:00)
[2021-08-14] MEDS ORDERED: NALOXONE HCL 0.4MG/ML VIAL IV PRN (18:15)
[2021-08-14] MEDS ORDERED: PIPERACILLIN/TAZOBACTAM 3.375G in DEXT 5% WATER 50ML IV SCH (19:30)
[2021-08-14] MEDS ORDERED: ENOXAPARIN 40MG/0.4ML SYR SUBCUT SCH (21:00)
[2021-08-14] MEDS ORDERED: METOCLOPRAMIDE HCL 10MG/2ML VIAL IV SCH (22:00)
== END 2021-08-14 18:21 | disposition left against medical advice (07) | DRG 251 ==
LOC: ER 07:24 → CANBEDREQ 12:29 → 7EST 12:59 → ENRESERV 15:18
PROVIDERS: ADMIT Internal Medicine; ATTEND Internal Medicine
DX: R10.9 Unspecified abdominal pain (principal); E87.1 Hypo-osmolality and hyponatremia; G89.29 Other chronic pain; Z53.29 Procedure and treatment not carried out because of patient's decision for other reasons; I10 Essential (primary) hypertension; I25.10 Atherosclerotic heart disease of native coronary artery without angina pectoris; Z88.0 Allergy status to penicillin; Z79.899 Other long term (current) drug therapy; Z79.1 Long term (current) use of non-steroidal anti-inflammatories (NSAID); I16.0 Hypertensive urgency; D72.829 Elevated white blood cell count, unspecified; E78.5 Hyperlipidemia, unspecified
CPT/HCPCS: 36415; 80053; 81003; 85025; 99285; J0360; J1885; J2270; J2405; J2543; J7030; J7060

== ENCOUNTER 2021-11-07 08:18 | Emergency (ER) | payer MEDICARE, OTHER ==
[~2021-11-07] VITALS: Ht 172.7 cm; Wt 77.0 kg
[~2021-11-07 08:18] MED LIST changes: +AMLO10TA80 MT; +CIME800T MT; +DICY10SO PO; +LOSA100T32 MT; +OMEP10CA5 MT
[2021-11-07] MEDS ORDERED: ASPIRIN 81MG TABLET PO ONE (08:30)
[2021-11-07] MEDS ORDERED: KETOROLAC 15MG/ML VIAL IV ONE (08:30)
[2021-11-07] MEDS ORDERED: SODIUM CHLORIDE 0.9% 1,000 ML IV ONE (08:30)
[2021-11-07] MEDS ORDERED: ONDANSETRON HCL 4MG/2ML INJ IV ONE (08:30)
[2021-11-07 08:54] LABS: BASOPHILS % 1.1 % (0.0-2.0); EOSINOPHILS % 0.3 % (0.0-5.0); HEMATOCRIT. 41.6 % (42.0-52.0); HEMOGLOBIN. 13.9 g/dL (14.0-18.0); MEAN CORPUSCULAR HEMOGLOBIN 27.8 pg (28.0-32.0); MEAN CORPUSCULAR VOLUME 83.2 fL (80.0-94.0); MEAN PLATELET VOLUME 7.6 fl (7.4-10.4); MONOCYTES % 7.5 % (2.0-8.0); NEUTROPHILS % 72.1 % (40.0-76.0); PLATELET 302 x1000/uL (130-400); RED CELL DISTRIBUTION WIDTH 14.8 % (11.6-14.6)
[2021-11-07 09:00] LABS: CHLORIDE 97 mEq/L (98-107)
[2021-11-07 09:04] LABS: ETHANOL BLOOD < 10 mg/dL
[2021-11-07] MEDS ORDERED: IOHEXOL-300 100 ML BOTTLE ONE (12:19)
[2021-11-07] MEDS ORDERED: HYDRALAZINE 20MG/ML VIAL IV NR (13:30)
[2021-11-07] MEDS ORDERED: HYDRALAZINE 20MG/ML VIAL IV ONE (13:30)
[2021-11-07] MEDS ORDERED: ACETAMINOPHEN 325MG TABLET PO ONE (14:00)
[2021-11-07 15:13] VITALS: BP 153/84
== END 2021-11-07 15:20 | disposition home or self-care (01) ==
LOC: ER 08:18
DX: G89.29 Other chronic pain (principal); R10.33 Periumbilical pain; I11.9 Hypertensive heart disease without heart failure; Z88.0 Allergy status to penicillin
CPT/HCPCS: 36415; 74177; 80053; 80320; 83690; 83880; 84484; 85025; 96361; 96374; 96375; 99285; J0360; J1885; J2405; J7030; Q9967; G0480

== ENCOUNTER 2021-12-11 10:32 | Emergency (ER) | payer MEDICARE, OTHER ==
[~2021-12-11] VITALS: Ht 180.3 cm; Wt 79.0 kg
[2021-12-11] MEDS ORDERED: MORPHINE SULFATE 4 MG/ML CPJ (NOT FOR IM USE) IV STA (10:43)
[2021-12-11] MEDS ORDERED: ONDANSETRON HCL 4MG/2ML INJ IV STA (10:43)
[2021-12-11] MEDS ORDERED: FAMOTIDINE 20MG/2ML VIAL IV STA (10:43)
[2021-12-11 11:33] LABS: BASOPHILS % 0.6 % (0.0-2.0); EOSINOPHILS % 0.1 % (0.0-5.0); HEMATOCRIT. 39.4 % (42.0-52.0); HEMOGLOBIN. 13.4 g/dL (14.0-18.0); MEAN CORPUSCULAR HEMOGLOBIN 28.3 pg (28.0-32.0); MEAN CORPUSCULAR VOLUME 83.1 fL (80.0-94.0); MEAN PLATELET VOLUME 7.7 fl (7.4-10.4); MONOCYTES % 4.5 % (2.0-8.0); NEUTROPHILS % 83.8 % (40.0-76.0); PLATELET 293 x1000/uL (130-400); RED BLOOD CELL COUNT 4.73 mill/uL (4.7-6.1); RED CELL DISTRIBUTION WIDTH 14.5 % (11.6-14.6)
[2021-12-11 11:43] LABS: CHLORIDE 101 mEq/L (98-107)
[2021-12-11] MEDS ORDERED: TOPUD PO (12:25)
[2021-12-11 12:43] LABS: CLARITY URINE CLEAR (CLEAR); COLOR URINE YELLOW (YELLOW); KETONES URINE TRACE (NEGATIVE); LEUKOCYTE ESTERASE URINE NEGATIVE (NEGATIVE); NITRITE URINE NEGATIVE (NEGATIVE); OCCULT BLOOD URINE NEGATIVE (NEGATIVE); PH URINE >=9.0 (4.5-8.0); PROTEIN URINE NEGATIVE (NEGATIVE); UROBILINOGEN URINE 0.2 E.U./dL (0.2-1.0)
[2021-12-11] MEDS ORDERED: MORPHINE SULFATE 4 MG/ML CPJ (NOT FOR IM USE) IV ONE (13:45)
[2021-12-11] MEDS ORDERED: IOHEXOL-300 100 ML BOTTLE ONE (15:57)
[2021-12-11 16:56] VITALS: BP 151/97
== END 2021-12-11 17:00 | disposition home or self-care (01) ==
LOC: ER 10:43
DX: R10.84 Generalized abdominal pain (principal); I11.9 Hypertensive heart disease without heart failure; Z88.0 Allergy status to penicillin
CPT/HCPCS: 36415; 74177; 80053; 81003; 83690; 85025; 96374; 96375; 96376; 99285; J2270; J2405; J3490; Q9967

== ENCOUNTER 2022-03-02 11:07 | Emergency (ER) | payer MEDICARE, OTHER ==
[~2022-03-02] VITALS: Ht 185.4 cm; Wt 82.0 kg
[~2022-03-02 11:07] MED LIST changes: -OMEP20TA2 PO; +OMEP20TA23 PO
[2022-03-02 12:41] LABS: CLARITY URINE CLEAR (CLEAR); COLOR URINE YELLOW (YELLOW); KETONES URINE TRACE (NEGATIVE); LEUKOCYTE ESTERASE URINE NEGATIVE (NEGATIVE); NITRITE URINE NEGATIVE (NEGATIVE); OCCULT BLOOD URINE NEGATIVE (NEGATIVE); PH URINE 8.5 (4.5-8.0); PROTEIN URINE NEGATIVE (NEGATIVE); SPECIFIC GRAVITY URINE 1.008 (1.005-1.030); UROBILINOGEN URINE 0.2 E.U./dL (0.2-1.0)
[2022-03-02] MEDS ORDERED: HALOPERIDOL LACTATE 5MG/ML VIAL IM ONE (12:45)
[2022-03-02 13:25] LABS: BASOPHILS % 0.6 % (0.0-2.0); HEMATOCRIT. 37.5 % (42.0-52.0); HEMOGLOBIN. 12.5 g/dL (14.0-18.0); LYMPHOCYTES % 9.6 % (20.0-50.0); MEAN CORPUSCULAR VOLUME 84.4 fL (80.0-94.0); MONOCYTES % 5.8 % (2.0-8.0); PLATELET 285 x1000/uL (130-400); RED BLOOD CELL COUNT 4.45 mill/uL (4.7-6.1); RED CELL DISTRIBUTION WIDTH 15.9 % (11.6-14.6)
[2022-03-02 13:35] LABS: CHLORIDE 100 mEq/L (98-107)
[2022-03-02 17:14] VITALS: BP 188/95
[2022-03-03 11:51] LABS: *AMPHETAMINES SCREEN URINE NEGATIVE (NEGATIVE); *BARBITURATES SCREEN URINE NEGATIVE (NEGATIVE); *BENZODIAZEPINES SCREEN URINE NEGATIVE (NEGATIVE); *COCAINE SCREEN URINE NEGATIVE (NEGATIVE); CANNABINOID URINE SCREEN PRESUMTIVE POSITIVE (NEGATIVE); METHADONE URINE SCREEN NEGATIVE (NEGATIVE); OPIATES URINE SCREEN NEGATIVE (NEGATIVE); PHENCYCLIDINE URINE SCREEN NEGATIVE (NEGATIVE)
== END 2022-03-02 17:15 | disposition home or self-care (01) ==
LOC: ER 11:23 → CANBEDREQ 16:27 → EDBEDREQTM 16:27 → ER 17:15
DX: R10.84 Generalized abdominal pain (principal); I10 Essential (primary) hypertension; F17.290 Nicotine dependence, other tobacco product, uncomplicated; F12.10 Cannabis abuse, uncomplicated; Z79.899 Other long term (current) drug therapy; G89.29 Other chronic pain
CPT/HCPCS: 36415; 74176; 80053; 80305; 81003; 83690; 85025; 93005; 96372; 99285; J1630

== ENCOUNTER 2022-04-11 11:17 | Emergency (ER) | payer MEDICARE, OTHER ==
[~2022-04-11] VITALS: Ht 167.6 cm; Wt 77.0 kg
[2022-04-11] MEDS ORDERED: ONDANSETRON HCL 4MG/2ML INJ IV STA (11:47)
[2022-04-11] MEDS ORDERED: FAMOTIDINE 20MG/2ML VIAL IV STA (11:47)
[2022-04-11] MEDS ORDERED: SODIUM CHLORIDE 0.9% 1,000 ML IV ONE (12:00)
[2022-04-11] MEDS ORDERED: PROCHLORPERAZINE 10MG/2ML VIAL IV ONE (12:15)
[2022-04-11] MEDS ORDERED: LABETALOL HCL VIAL 20 MG/4 ML VIAL IV ONE (12:15)
[2022-04-11 12:18] LABS: CHLORIDE 102 mEq/L (98-107)
[2022-04-11 12:28] LABS: BASOPHILS % 0.7 % (0.0-2.0); EOSINOPHILS % 0.2 % (0.0-5.0); HEMATOCRIT. 39.8 % (42.0-52.0); LYMPHOCYTES % 22.6 % (20.0-50.0); MEAN CORPUSCULAR HEMOGLOBIN 27.7 pg (28.0-32.0); MEAN CORPUSCULAR VOLUME 84.6 fL (80.0-94.0); MEAN PLATELET VOLUME 7.7 fl (7.4-10.4); MONOCYTES % 8.6 % (2.0-8.0); NEUTROPHILS % 67.9 % (40.0-76.0); PLATELET 258 x1000/uL (130-400); RED BLOOD CELL COUNT 4.71 mill/uL (4.7-6.1); RED CELL DISTRIBUTION WIDTH 16.1 % (11.6-14.6)
[2022-04-11] MEDS ORDERED: POTASSIUM CHLORIDE 20MEQ TABLET SR PO NR (12:45)
[2022-04-11] MEDS ORDERED: LABETALOL 5MG/ML SYR 20 MG/4 ML SYRINGE IV NR (12:49)
[2022-04-11 12:58] LABS: CLARITY URINE CLEAR (CLEAR); COLOR URINE YELLOW (YELLOW); KETONES URINE NEGATIVE (NEGATIVE); LEUKOCYTE ESTERASE URINE NEGATIVE (NEGATIVE); NITRITE URINE NEGATIVE (NEGATIVE); OCCULT BLOOD URINE NEGATIVE (NEGATIVE); PH URINE 8.5 (4.5-8.0); PROTEIN URINE NEGATIVE (NEGATIVE); SPECIFIC GRAVITY URINE 1.008 (1.005-1.030); UROBILINOGEN URINE 0.2 E.U./dL (0.2-1.0)
[2022-04-11] MEDS ORDERED: KETOROLAC 30MG/ML VIAL IV ONE (13:45)
[2022-04-11] MEDS ORDERED: DIPHENHYDRAMINE 50MG/ML VIAL IV ONE (13:45)
[2022-04-11] MEDS ORDERED: VISCOUS LIDOCAINE 2% 15 ML UDC MM NR (13:45)
[2022-04-11] MEDS ORDERED: MAGNESIUM/ALUMINUM HYDROXIDE/SIMETHICONE 30ML UDC PO NR (13:45)
[2022-04-11] MEDS ORDERED: MORPHINE SULFATE 4 MG/ML CPJ (NOT FOR IM USE) IV ONE (14:00)
[2022-04-11] MEDS ORDERED: PROC5TAB55 MT (14:56)
[2022-04-11] MEDS ORDERED: POTA-79 MT (14:56)
[2022-04-11] MEDS ORDERED: PROT40 MT (14:56)
[2022-04-11 16:18] VITALS: BP 196/106
== END 2022-04-11 16:18 | disposition home or self-care (01) ==
LOC: ER 11:17
DX: R10.9 Unspecified abdominal pain (principal); I10 Essential (primary) hypertension; F12.10 Cannabis abuse, uncomplicated; Z79.899 Other long term (current) drug therapy
CPT/HCPCS: 36415; 74176; 80053; 81003; 83690; 84484; 85025; 96361; 96374; 96375; 99284; J0780; J1200; J1885; J2270; J2405; J3490; J7030

== ENCOUNTER 2022-05-18 10:41 | Emergency (ER) | payer MEDICARE, OTHER ==
[~2022-05-18] VITALS: Ht 175.3 cm; Wt 68.0 kg
[~2022-05-18 10:41] MED LIST changes: +POTA-79 MT; +PROC5TAB55 MT; +PROT40 MT
[2022-05-18] MEDS ORDERED: KETOROLAC 30MG/ML VIAL IV STA (10:44)
[2022-05-18] MEDS ORDERED: ONDANSETRON HCL 4MG/2ML INJ IV STA (10:44)
[2022-05-18] MEDS ORDERED: SODIUM CHLORIDE 0.9% 1,000 ML IV ONE (10:45)
[2022-05-18 11:16] VITALS: BP 221/107
[2022-05-18 11:31] LABS: BASOPHILS % 2.7 % (0.0-2.0); EOSINOPHILS % 0.5 % (0.0-5.0); HEMATOCRIT. 40.2 % (42.0-52.0); HEMOGLOBIN. 13.6 g/dL (14.0-18.0); LYMPHOCYTES % 33.6 % (20.0-50.0); MEAN CORPUSCULAR HEMOGLOBIN 28.2 pg (28.0-32.0); MEAN CORPUSCULAR VOLUME 83.6 fL (80.0-94.0); MEAN PLATELET VOLUME 7.8 fl (7.4-10.4); MONOCYTES % 6.8 % (2.0-8.0); NEUTROPHILS % 56.4 % (40.0-76.0); PLATELET 351 x1000/uL (130-400); RED BLOOD CELL COUNT 4.81 mill/uL (4.7-6.1)
[2022-05-18 11:35] LABS: CHLORIDE 102 mEq/L (98-107)
[2022-05-18 11:43] LABS: ETHANOL BLOOD < 10 mg/dL
[2022-05-18 11:46] LABS: CLARITY URINE CLEAR (CLEAR); COLOR URINE YELLOW (YELLOW); KETONES URINE NEGATIVE (NEGATIVE); LEUKOCYTE ESTERASE URINE NEGATIVE (NEGATIVE); NITRITE URINE NEGATIVE (NEGATIVE); OCCULT BLOOD URINE NEGATIVE (NEGATIVE); PROTEIN URINE NEGATIVE (NEGATIVE); SPECIFIC GRAVITY URINE 1.007 (1.005-1.030); UROBILINOGEN URINE 0.2 E.U./dL (0.2-1.0)
[2022-05-18 12:10] LABS: *AMPHETAMINES SCREEN URINE NEGATIVE (NEGATIVE); *BARBITURATES SCREEN URINE NEGATIVE (NEGATIVE); *BENZODIAZEPINES SCREEN URINE NEGATIVE (NEGATIVE); *COCAINE SCREEN URINE NEGATIVE (NEGATIVE); CANNABINOID URINE SCREEN PRESUMTIVE POSITIVE (NEGATIVE); METHADONE URINE SCREEN NEGATIVE (NEGATIVE); OPIATES URINE SCREEN NEGATIVE (NEGATIVE); PHENCYCLIDINE URINE SCREEN NEGATIVE (NEGATIVE)
[2022-05-18] MEDS ORDERED: DICYCLOMINE 10 MG/5 ML ORAL SYR PO STA (12:59)
[2022-05-18] MEDS ORDERED: VISCOUS LIDOCAINE 2% 15 ML UDC PO STA (12:59)
[2022-05-18] MEDS ORDERED: MAGNESIUM/ALUMINUM HYDROXIDE/SIMETHICONE 30ML UDC PO STA (12:59)
== END 2022-05-18 13:52 | disposition home or self-care (01) ==
LOC: ER 10:49
DX: R10.33 Periumbilical pain (principal); K21.9 Gastro-esophageal reflux disease without esophagitis; I10 Essential (primary) hypertension; F12.10 Cannabis abuse, uncomplicated; Z79.899 Other long term (current) drug therapy
CPT/HCPCS: 36415; 74176; 80053; 80305; 80320; 81003; 83690; 85025; 96374; 96375; 99291; J1885; J2405; J7030; G0480

== ENCOUNTER 2023-01-11 11:20 | Emergency (ER) | payer MEDICARE, OTHER ==
[~2023-01-11] VITALS: Ht 172.7 cm; Wt 70.0 kg
[2023-01-11] MEDS ORDERED: MORPHINE SULFATE 4 MG/ML CPJ (NOT FOR IM USE) IV SCH (12:15)
[2023-01-11] MEDS ORDERED: ONDANSETRON HCL 4MG/2ML INJ IV SCH (12:15)
[2023-01-11] MEDS ORDERED: ENALAPRIL 1.25MG/ML VIAL 1ML IV SCH (13:00)
[2023-01-11] MEDS ORDERED: FAMOTIDINE 20MG/2ML VIAL IV SCH (13:00)
[2023-01-11 13:21] LABS: BASOPHILS % 0.7 % (0.0-2.0); HEMATOCRIT. 38.2 % (42.0-52.0); HEMOGLOBIN. 12.9 g/dL (14.0-18.0); LYMPHOCYTES % 11.9 % (20.0-50.0); MEAN CORPUSCULAR HEMOGLOBIN 27.8 pg (28.0-32.0); MEAN CORPUSCULAR VOLUME 82.4 fL (80.0-94.0); MEAN PLATELET VOLUME 8.4 fl (7.4-10.4); MONOCYTES % 6.2 % (2.0-8.0); NEUTROPHILS % 81.2 % (40.0-76.0); PLATELET 352 x1000/uL (130-400); RED BLOOD CELL COUNT 4.64 mill/uL (4.7-6.1); RED CELL DISTRIBUTION WIDTH 16.5 % (11.6-14.6)
[2023-01-11 13:49] LABS: CHLORIDE 100 mEq/L (98-107)
[2023-01-11] MEDS ORDERED: SODIUM CHLORIDE 0.9% 1,000 ML IV SCH (14:30)
[2023-01-11] MEDS ORDERED: MORPHINE SULFATE 4 MG/ML CPJ (NOT FOR IM USE) IV NR (14:30)
[2023-01-11 18:00] VITALS: BP 185/98
[2023-01-11] MEDS ORDERED: IOHEXOL-300 100 ML BOTTLE ONE (23:08)
== END 2023-01-11 20:30 | disposition home or self-care (01) ==
LOC: ER 11:52 → CANBEDREQ 01-12 07:44
DX: K56.609 Unspecified intestinal obstruction, unspecified as to partial versus complete obstruction (principal); K52.9 Noninfective gastroenteritis and colitis, unspecified; K37 Unspecified appendicitis; K55.9 Vascular disorder of intestine, unspecified; K21.9 Gastro-esophageal reflux disease without esophagitis; I10 Essential (primary) hypertension
CPT/HCPCS: 36415; 74177; 80053; 83605; 83690; 85025; 96374; 96375; 96376; 99285; J2270; J2405; J3490; Q9967

== ENCOUNTER 2023-02-05 12:52 | Emergency (ER) | payer MEDICARE, OTHER ==
[~2023-02-05] VITALS: Ht 182.9 cm; Wt 66.0 kg
[2023-02-05] MEDS ORDERED: VISCOUS LIDOCAINE 2% 15 ML UDC PO STA (12:57)
[2023-02-05] MEDS ORDERED: MAGNESIUM/ALUMINUM HYDROXIDE/SIMETHICONE 30ML UDC PO STA (12:57)
[2023-02-05] MEDS ORDERED: DICYCLOMINE 10 MG/5 ML ORAL SYR PO STA (12:57)
[2023-02-05] MEDS ORDERED: ENALAPRIL 2.5MG/2ML VIAL 2ML IV ONE (13:15)
[2023-02-05] MEDS ORDERED: ENALAPRIL 1.25MG/ML VIAL 1ML IV NR (13:15)
[2023-02-05 13:47] LABS: BASOPHILS % 0.4 % (0.0-2.0); HEMATOCRIT. 37.7 % (42.0-52.0); HEMOGLOBIN. 12.7 g/dL (14.0-18.0); LYMPHOCYTES % 20.5 % (20.0-50.0); MEAN CORPUSCULAR HEMOGLOBIN 27.8 pg (28.0-32.0); MEAN CORPUSCULAR VOLUME 82.5 fL (80.0-94.0); MEAN PLATELET VOLUME 7.6 fl (7.4-10.4); MONOCYTES % 9.2 % (2.0-8.0); NEUTROPHILS % 69.9 % (40.0-76.0); PLATELET 238 x1000/uL (130-400); RED BLOOD CELL COUNT 4.57 mill/uL (4.7-6.1); RED CELL DISTRIBUTION WIDTH 15.5 % (11.6-14.6)
[2023-02-05 13:56] LABS: CHLORIDE 96 mEq/L (98-107)
[2023-02-05] MEDS ORDERED: ONDANSETRON HCL 4MG/2ML INJ IV STA (15:15)
[2023-02-05] MEDS ORDERED: MORPHINE SULFATE 4 MG/ML CPJ (NOT FOR IM USE) IV STA (15:15)
[2023-02-05 15:22] VITALS: BP 162/87
== END 2023-02-05 15:36 | disposition home or self-care (01) ==
LOC: ER 12:52
DX: R10.13 Epigastric pain (principal); I16.0 Hypertensive urgency; I10 Essential (primary) hypertension; K21.9 Gastro-esophageal reflux disease without esophagitis; Z79.899 Other long term (current) drug therapy; F12.10 Cannabis abuse, uncomplicated
CPT/HCPCS: 36415; 71045; 74176; 80053; 83690; 84484; 85025; 93005; 96374; 96375; 99285; J2270; J2405; J3490; Z7610

== ENCOUNTER 2023-02-08 09:15 | Emergency (ER) | payer MEDICARE, OTHER ==
[~2023-02-08] VITALS: Ht 172.7 cm; Wt 75.0 kg
[~2023-02-08 09:15] MED LIST changes: -LOSA100T32 MT; +LOSA100T33 MT; +POTA-354 MT; -POTA-79 MT
[2023-02-08 10:11] LABS: BASOPHILS % 0.6 % (0.0-2.0); HEMATOCRIT. 38.6 % (42.0-52.0); HEMOGLOBIN. 13.2 g/dL (14.0-18.0); LYMPHOCYTES % 17.2 % (20.0-50.0); MEAN CORPUSCULAR HEMOGLOBIN 27.6 pg (28.0-32.0); MEAN CORPUSCULAR VOLUME 80.9 fL (80.0-94.0); MONOCYTES % 8.8 % (2.0-8.0); NEUTROPHILS % 73.4 % (40.0-76.0); PLATELET 231 x1000/uL (130-400); RED BLOOD CELL COUNT 4.77 mill/uL (4.7-6.1); RED CELL DISTRIBUTION WIDTH 14.9 % (11.6-14.6)
[2023-02-08 10:17] LABS: CHLORIDE 92 mEq/L (98-107)
[2023-02-08] MEDS ORDERED: DIPHENHYDRAMINE 50MG/ML VIAL IV ONE (10:45)
[2023-02-08] MEDS ORDERED: HALOPERIDOL LACTATE 5MG/ML VIAL IM ONE (10:45)
[2023-02-08] MEDS ORDERED: KCL 20MEQ/100ML PREMIX 100 ML IV ONE (10:45)
[2023-02-08] MEDS ORDERED: ONDANSETRON HCL 4MG/2ML INJ IV ONE (10:45)
[2023-02-08] MEDS ORDERED: POTASSIUM CHLORIDE 20MEQ/PACKET PO ONE (10:45)
[2023-02-08] MEDS ORDERED: SODIUM CHLORIDE 0.9% 1,000 ML IV ONE (10:45)
[2023-02-08] MEDS ORDERED: PANTOPRAZOLE SODIUM 40 MG/VIAL IV ONE (10:45)
[2023-02-08 12:21] VITALS: BP 197/89
== END 2023-02-08 13:37 | disposition left against medical advice (07) ==
LOC: ER 09:46 → CANBEDREQ 12:22 → ER 13:37
DX: E87.6 Hypokalemia (principal); R11.2 Nausea with vomiting, unspecified; F12.90 Cannabis use, unspecified, uncomplicated; K21.9 Gastro-esophageal reflux disease without esophagitis; I11.9 Hypertensive heart disease without heart failure; Z79.899 Other long term (current) drug therapy
CPT/HCPCS: 36415; 80053; 83690; 85025; 96365; 96372; 96374; 96375; 99291; C9113; J1200; J1630; J2405; J3480; J7030; Z7610

== ENCOUNTER 2023-03-21 11:32 | Emergency (ER) | payer MEDICARE, OTHER ==
[~2023-03-21] VITALS: Ht 177.8 cm; Wt 70.0 kg
[2023-03-21 11:33] VITALS: O2SAT 97
[2023-03-21] MEDS ORDERED: LORAZEPAM 2MG/ML CPJ IV ONE (11:45)
[2023-03-21 12:56] LABS: EOSINOPHILS % 0.1 % (0.0-5.0); HEMATOCRIT. 33.9 % (42.0-52.0); HEMOGLOBIN. 11.3 g/dL (14.0-18.0); LYMPHOCYTES % 19.5 % (20.0-50.0); MEAN CORPUSCULAR HEMOGLOBIN 27.4 pg (28.0-32.0); MEAN CORPUSCULAR VOLUME 82.3 fL (80.0-94.0); MEAN PLATELET VOLUME 7.2 fl (7.4-10.4); MONOCYTES % 4.6 % (2.0-8.0); NEUTROPHILS % 74.8 % (40.0-76.0); PLATELET 320 x1000/uL (130-400); RED BLOOD CELL COUNT 4.12 mill/uL (4.7-6.1); RED CELL DISTRIBUTION WIDTH 16.7 % (11.6-14.6)
[2023-03-21 13:16] LABS: CHLORIDE 101 mEq/L (98-107)
[2023-03-21] MEDS ORDERED: ONDA4TAB50 MT (14:10)
[2023-03-21] MEDS ORDERED: HYDRALAZINE HCL 50MG TABLET PO ONE (14:15)
[2023-03-21] MEDS ORDERED: ONDANSETRON HCL 4MG/2ML INJ IV ONE (17:30)
[2023-03-21] MEDS ORDERED: CLONIDINE 0.1MG TABLET PO ONE (17:30)
[2023-03-21] MEDS ORDERED: LOSARTAN POTASSIUM 100 MG TABLET PO ONE (17:30)
[2023-03-21 18:40] VITALS: BP 188/103; PULSE 88; RESP 20; TEMP 98.1
[2023-03-21] MEDS ORDERED: AMLO10TA80 MT (18:43)
[2023-03-21] MEDS ORDERED: LOSA100T33 MT (18:43)
== END 2023-03-21 18:54 | disposition home or self-care (01) ==
LOC: ER 11:32
DX: R10.9 Unspecified abdominal pain (principal); I16.0 Hypertensive urgency; I10 Essential (primary) hypertension; K21.9 Gastro-esophageal reflux disease without esophagitis; F12.10 Cannabis abuse, uncomplicated
CPT/HCPCS: 80053; 83690; 85025; 84484; 36415; 74176; 93005; 96374; 96375; 99285; J2060; J2405; Z7610 ×4

== ENCOUNTER 2023-04-30 08:15 | Emergency (ER) | payer MEDICARE, OTHER ==
[~2023-04-30] VITALS: Ht 170.2 cm; Wt 78.0 kg
[~2023-04-30 08:15] MED LIST changes: +ONDA4TAB50 MT
[2023-04-30] MEDS ORDERED: ONDANSETRON HCL 4MG/2ML INJ IV STA (08:19)
[2023-04-30] MEDS ORDERED: FAMOTIDINE 20MG/2ML VIAL IV STA (08:19)
[2023-04-30 08:20] VITALS: O2SAT 100
[2023-04-30 08:51] LABS: BASOPHILS % 0.5 % (0.0-2.0); EOSINOPHILS % 0.1 % (0.0-5.0); HEMATOCRIT. 35.6 % (42.0-52.0); HEMOGLOBIN. 12.2 g/dL (14.0-18.0); LYMPHOCYTES % 7.7 % (20.0-50.0); MEAN CORPUSCULAR HEMOGLOBIN 28.7 pg (28.0-32.0); MEAN CORPUSCULAR HGB CONC 34.2 g/dL (31.0-37.0); MEAN CORPUSCULAR VOLUME 83.9 fL (80.0-94.0); MEAN PLATELET VOLUME 7.5 fl (7.4-10.4); MONOCYTES % 6.2 % (2.0-8.0); NEUTROPHILS % 85.5 % (40.0-76.0); PLATELET 258 x1000/uL (130-400); RED BLOOD CELL COUNT 4.25 mill/uL (4.7-6.1); RED CELL DISTRIBUTION WIDTH 17.8 % (11.6-14.6); WHITE BLOOD COUNT 16.2 x1000/uL (4.5-11.0)
[2023-04-30 08:58] LABS: CHLORIDE 100 mEq/L (98-107); INDEX HEMOLYSI 1 (1-3); INDEX ICTERIC 1 (1-4); INDEX LIPEMIC 1 (1-3); SODIUM 129 mEq/L (136-145)
[2023-04-30 09:00] LABS: PROTHROMBIN TIME 10.9 sec (9.6-11.0)
[2023-04-30 09:10] LABS: ALANINE AMINOTRANSFERASE 15 IU/L (13-61); ALBUMIN 3.6 g/dL (3.4-5.0); ASPARTATE AMINOTRANSFERASE 14 IU/L (15-37); BILIRUBIN TOTAL 0.6 mg/dL (0.1-1.0); CALCIUM 9.2 mg/dL (8.5-10.1); CARBON DIOXIDE 21 mEq/L (21-32); CREATININE 0.7 mg/dL (0.6-1.3); GLUCOSE 142 mg/dL (70-105); PROTEIN TOTAL 8.5 g/dL (6.0-8.3); TROPONIN I HIGH SENSITIVITY 4 ng/L (<78); UREA NITROGEN BLOOD 7 mg/dL (7-21)
[2023-04-30 10:12] VITALS: TEMP 98.6
[2023-04-30 10:29] LABS: CLARITY URINE CLEAR (CLEAR); COLOR URINE YELLOW (YELLOW); GLUCOSE URINE NEGATIVE (NEGATIVE); KETONES URINE 1+ (NEGATIVE); LEUKOCYTE ESTERASE URINE NEGATIVE (NEGATIVE); NITRITE URINE NEGATIVE (NEGATIVE); OCCULT BLOOD URINE NEGATIVE (NEGATIVE); PROTEIN URINE NEGATIVE (NEGATIVE); SPECIFIC GRAVITY URINE 1.011 (1.005-1.030); UROBILINOGEN URINE 0.2 E.U./dL (0.2-1.0)
[2023-04-30] MEDS ORDERED: MORPHINE SULFATE 4 MG/ML CPJ (NOT FOR IM USE) IV ONE (11:00)
[2023-04-30] MEDS ORDERED: ONDANSETRON HCL 4MG/2ML INJ IV ONE (11:00)
[2023-04-30 11:49] VITALS: BP 190/93; PULSE 70; RESP 22
[2023-04-30] MEDS ORDERED: HYDRALAZINE 20MG/ML VIAL IV ONE (12:45)
== END 2023-04-30 14:14 | disposition short-term general hospital (02) ==
LOC: ER 08:15
DX: R11.2 Nausea with vomiting, unspecified (principal); I10 Essential (primary) hypertension; Z88.0 Allergy status to penicillin; Z79.899 Other long term (current) drug therapy; Z98.890 Other specified postprocedural states
CPT/HCPCS: 80053; 81003; 83690; 85025; 85610; 84484; 36415; 74176; 96374; 96375; 96376; 99285; J3490; J0360; J2405; J2270; Z7610 ×3

== ENCOUNTER 2023-05-02 09:16 | Emergency (ER) | payer MEDICARE, OTHER ==
[~2023-05-02] VITALS: Ht 177.8 cm; Wt 75.0 kg
[2023-05-02 09:18] VITALS: BP 206/122; PULSE 91; RESP 19; TEMP 98; O2SAT 98
== END 2023-05-02 12:49 | disposition left against medical advice (07) ==
LOC: ER 09:25
DX: R11.2 Nausea with vomiting, unspecified (principal); I10 Essential (primary) hypertension
CPT/HCPCS: 99281

== ENCOUNTER 2023-05-15 05:30 | Inpatient (IN) | payer MEDICARE, OTHER ==
[~2023-05-15] VITALS: Ht 167.6 cm; Wt 56.8 kg
[2023-05-15 07:18] LABS: BASOPHILS % 0.8 % (0.0-2.0); EOSINOPHILS % 0.2 % (0.0-5.0); HEMATOCRIT. 33.6 % (42.0-52.0); HEMOGLOBIN. 11.4 g/dL (14.0-18.0); LYMPHOCYTES % 15.8 % (20.0-50.0); MEAN CORPUSCULAR HEMOGLOBIN 29.1 pg (28.0-32.0); MEAN CORPUSCULAR VOLUME 85.5 fL (80.0-94.0); MEAN PLATELET VOLUME 6.9 fl (7.4-10.4); MONOCYTES % 8.2 % (2.0-8.0); PLATELET 464 x1000/uL (130-400); RED BLOOD CELL COUNT 3.93 mill/uL (4.7-6.1); RED CELL DISTRIBUTION WIDTH 16.5 % (11.6-14.6)
[2023-05-15 07:26] LABS: CHLORIDE 100 mEq/L (98-107); INDEX HEMOLYSI 4 (1-3); INDEX ICTERIC 1 (1-4); INDEX LIPEMIC 1 (1-3); SODIUM 128 mEq/L (136-145)
[2023-05-15 07:28] LABS: PARTIAL THROMBOPLASTIN TIME 30.9 sec (23.4-31.0); PROTHROMBIN TIME 11.2 sec (9.6-11.0)
[2023-05-15 07:30] LABS: POTASSIUM 4.6 mEq/L (3.5-5.1)
[2023-05-15 07:34] LABS: ALANINE AMINOTRANSFERASE 17 IU/L (13-61); ASPARTATE AMINOTRANSFERASE 23 IU/L (15-37); BILIRUBIN TOTAL 0.7 mg/dL (0.1-1.0); CARBON DIOXIDE 22 mEq/L (21-32); GLUCOSE 92 mg/dL (70-105); PROTEIN TOTAL 8.4 g/dL (6.0-8.3); UREA NITROGEN BLOOD 14 mg/dL (7-21)
[2023-05-15] MEDS ORDERED: SODIUM CHLORIDE 0.9% 500 ML IV SCH (07:45)
[2023-05-15] MEDS ORDERED: POLYMYXIN B SULFATE 500000 UNITS/VIAL ONE (08:35)
[2023-05-15] MEDS ORDERED: BACITRACIN 15GM TUBE TOP ONE (08:35)
[2023-05-15] MEDS ORDERED: THROMBIN (BOVINE) 5000 UNITS/VIAL TOP ONE (08:35)
[2023-05-15] MEDS ORDERED: BUPIVACAINE HCL/PF 0.5% (5MG/ML) 10ML ONE (08:36)
[2023-05-15] MEDS ORDERED: LIDOCAINE HCL 1% 10 MG/ML 10ML VIAL ONE (08:36)
[2023-05-15] MEDS ORDERED: HEPARIN SODIUM 1,000 UNIT/1ML VIAL IV ONE (08:36)
[2023-05-15] MEDS ORDERED: MORPHINE SULFATE 4 MG/ML CPJ (NOT FOR IM USE) IV PRN (09:15)
[2023-05-15] MEDS ORDERED: CLINDAMYCIN 600MG PREMIX 50 ML IV SCH (10:00)
[2023-05-15] MEDS ORDERED: ACETAMINOPHEN 325MG TABLET PO PRN (15:00)
[2023-05-15] MEDS ORDERED: ONDANSETRON HCL 4MG/2ML INJ IV PRN (15:00)
[2023-05-15 16:00] VITALS: PULSE 83; RESP 20; TEMP 97.7
[2023-05-15 16:22] VITALS: BP 170/81; PULSE 83; RESP 18; TEMP 97.7
[2023-05-15 20:00] VITALS: BP 193/91; PULSE 84; RESP 18; TEMP 97.7
[2023-05-15] MEDS ORDERED: CLONIDINE 0.1MG TABLET PO PRN (20:30)
[2023-05-16 04:00] VITALS: BP 157/85; PULSE 79; RESP 18; TEMP 97.9
[2023-05-16 08:00] VITALS: BP 160/86; PULSE 83; RESP 19; TEMP 97.9
[2023-05-16 12:00] VITALS: BP 168/88; PULSE 78; RESP 18; TEMP 98.9
[2023-05-16] MEDS ORDERED: TC1C15 TP (12:24)
[2023-05-16 12:59] VITALS: BP 160/86; PULSE 83; TEMP 97.7; O2SAT 99
== END 2023-05-16 13:20 | disposition home or self-care (01) | DRG 181 ==
LOC: ER 05:30 → 6EST 07:24
PROVIDERS: ADMIT Internal Medicine; ATTEND Internal Medicine
PROC: 041L0JL Bypass Left Femoral Artery to Popliteal Artery with Synthetic Substitute, Open Approach (ICD-10-PCS; principal; 2023-05-15)
PROC: 047Y3ZZ Dilation of Lower Artery, Percutaneous Approach (ICD-10-PCS; 2023-05-15)
PROC: 04CL0ZZ Extirpation of Matter from Left Femoral Artery, Open Approach (ICD-10-PCS; 2023-05-15)
DX: I70.222 Atherosclerosis of native arteries of extremities with rest pain, left leg (principal); I74.5 Embolism and thrombosis of iliac artery; E44.0 Moderate protein-calorie malnutrition; E87.1 Hypo-osmolality and hyponatremia; I10 Essential (primary) hypertension; K21.9 Gastro-esophageal reflux disease without esophagitis; D64.9 Anemia, unspecified; Z88.0 Allergy status to penicillin; Z68.20 Body mass index [BMI] 20.0-20.9, adult; Z86.718 Personal history of other venous thrombosis and embolism
CPT/HCPCS: 36415; 71045; 80053; 85025; 86850; 86900; 88304; 99285; J1644; J3490

== ENCOUNTER 2023-07-18 07:04 | Emergency (ER) | payer MEDICARE, OTHER ==
[~2023-07-18] VITALS: Ht 177.8 cm; Wt 65.0 kg
[~2023-07-18 07:04] MED LIST changes: +TC1C15 TP
[2023-07-18 07:06] VITALS: O2SAT 100
[2023-07-18] MEDS ORDERED: PANTOPRAZOLE SODIUM 40 MG/VIAL IV STA (07:24)
[2023-07-18] MEDS ORDERED: HALOPERIDOL LACTATE 5MG/ML VIAL IM ONE (07:30)
[2023-07-18] MEDS ORDERED: DIPHENHYDRAMINE 50MG/ML VIAL IV ONE (07:30)
[2023-07-18] MEDS ORDERED: MORPHINE SULFATE 2 MG/ML CPJ (NOT FOR IM USE) IV ONE (07:30)
[2023-07-18] MEDS ORDERED: SODIUM CHLORIDE 0.9% 1,000 ML IV ONE (07:30)
[2023-07-18 08:33] VITALS: PULSE 79; RESP 20; TEMP 97.5
[2023-07-18 09:38] LABS: CLARITY URINE CLEAR (CLEAR); COLOR URINE YELLOW (YELLOW); GLUCOSE URINE NEGATIVE (NEGATIVE); KETONES URINE NEGATIVE (NEGATIVE); LEUKOCYTE ESTERASE URINE NEGATIVE (NEGATIVE); NITRITE URINE NEGATIVE (NEGATIVE); OCCULT BLOOD URINE NEGATIVE (NEGATIVE); PH URINE 8.5 (4.5-8.0); PROTEIN URINE TRACE (NEGATIVE); SPECIFIC GRAVITY URINE 1.009 (1.005-1.030); UROBILINOGEN URINE 0.2 E.U./dL (0.2-1.0)
[2023-07-18 09:41] LABS: BACTERIA URINE NONE SEEN; RBC URINE NONE SEEN /hpf (0-2); SQUAMOUS EPITHELIAL CELL URINE NONE SEEN /lpf (RARE/1+); YEAST URINE NONE SEEN
[2023-07-18 10:00] LABS: WBC URINE 0-2 /hpf (0-2)
[2023-07-18 10:02] LABS: *AMPHETAMINES SCREEN URINE NEGATIVE (NEGATIVE); *BARBITURATES SCREEN URINE NEGATIVE (NEGATIVE); *BENZODIAZEPINES SCREEN URINE NEGATIVE (NEGATIVE); *COCAINE SCREEN URINE NEGATIVE (NEGATIVE); CANNABINOID URINE SCREEN PRESUMTIVE POSITIVE (NEGATIVE); ECSTASY MDMA SCREEN URINE NEGATIVE (NEGATIVE); OPIATES URINE SCREEN NEGATIVE (NEGATIVE); PHENCYCLIDINE URINE SCREEN NEGATIVE (NEGATIVE)
[2023-07-18 10:05] LABS: HEMATOCRIT. 35.6 % (42.0-52.0); MEAN CORPUSCULAR HEMOGLOBIN 27.5 pg (28.0-32.0); MEAN CORPUSCULAR HGB CONC 33.7 g/dL (31.0-37.0); MEAN CORPUSCULAR VOLUME 81.5 fL (80.0-94.0); MEAN PLATELET VOLUME 7.9 fl (7.4-10.4); PLATELET 302 x1000/uL (130-400); RED BLOOD CELL COUNT 4.37 mill/uL (4.7-6.1); RED CELL DISTRIBUTION WIDTH 15.1 % (11.6-14.6)
[2023-07-18 10:19] LABS: DIFFERENTIAL COMMENT 1
[2023-07-18 10:58] LABS: ANISOCYTOSIS 1+; CHLORIDE 101 mEq/L (98-107); INDEX HEMOLYSI 2 (1-3); INDEX ICTERIC 1 (1-4); INDEX LIPEMIC 1 (1-3); PLATELET ESTIMATE NORMAL; POTASSIUM 2.9 mEq/L (3.5-5.1); SODIUM 133 mEq/L (136-145)
[2023-07-18 11:07] LABS: ALANINE AMINOTRANSFERASE 13 IU/L (13-61); ALBUMIN 3.7 g/dL (3.4-5.0); ASPARTATE AMINOTRANSFERASE 16 IU/L (15-37); BILIRUBIN TOTAL 0.3 mg/dL (0.1-1.0); CARBON DIOXIDE 22 mEq/L (21-32); CREATININE 0.6 mg/dL (0.6-1.3); ETHANOL BLOOD < 10 mg/dL (<10); GLUCOSE 131 mg/dL (70-105); PROTEIN TOTAL 8.4 g/dL (6.0-8.3); UREA NITROGEN BLOOD 6 mg/dL (7-21)
[2023-07-18] MEDS ORDERED: MAGNESIUM OXIDE 400MG TABLET PO SCH (11:15)
[2023-07-18] MEDS ORDERED: KCL 20MEQ/100ML PREMIX 100 ML IV ONE (11:15)
[2023-07-18] MEDS ORDERED: POTASSIUM CHLORIDE 20MEQ TABLET SR PO ONE (11:15)
[2023-07-18] MEDS ORDERED: LABETALOL HCL VIAL 20 MG/4 ML VIAL IV ONE (11:45)
[2023-07-18] MEDS ORDERED: LABETALOL 5MG/ML SYR 20 MG/4 ML SYRINGE IV NR (12:00)
[2023-07-18 12:45] VITALS: BP 196/93
== END 2023-07-18 21:00 | disposition home or self-care (01) ==
LOC: ER 07:07
DX: K29.70 Gastritis, unspecified, without bleeding (principal); R11.2 Nausea with vomiting, unspecified; F12.90 Cannabis use, unspecified, uncomplicated; I10 Essential (primary) hypertension; Z98.890 Other specified postprocedural states; Z79.899 Other long term (current) drug therapy
CPT/HCPCS: 80053; 80305; 81003; 80320; 83690; 85025; 36415; 74176; 93005; 96361; 96365; 96366; 96372; 96375; 99285; J1200; J1630; J3490; C9113; J3480; J2270; J7030; C1893; G0480

== ENCOUNTER 2024-03-04 09:48 | Emergency (ER) | payer MEDICARE, OTHER ==
[~2024-03-04] VITALS: Ht 172.7 cm; Wt 75.0 kg
[~2024-03-04 09:48] MED LIST changes: -HYDR-4134 PO; +HYDR25TA78 PO
[2024-03-04 09:50] VITALS: TEMP 98.3; O2SAT 100
[2024-03-04] MEDS: ONDANSETRON HCL 4MG/2ML INJ IV ONE (11:15)
[2024-03-04] MEDS: PANTOPRAZOLE SODIUM 40 MG/VIAL IV ONE (11:15)
[2024-03-04] MEDS: SODIUM CHLORIDE 0.9% 1,000 ML IV ONE (11:15)
[2024-03-04 11:22] LABS: BASOPHILS % 0.5 % (0.0-2.0); DIFFERENTIAL COMMENT 0; HEMATOCRIT. 34.1 % (42.0-52.0); HEMOGLOBIN. 11.9 g/dL (14.0-18.0); LYMPHOCYTES % 7.4 % (20.0-50.0); MEAN CORPUSCULAR HEMOGLOBIN 27.7 pg (28.0-32.0); MEAN CORPUSCULAR VOLUME 79.1 fL (80.0-94.0); MEAN PLATELET VOLUME 7.6 fl (7.4-10.4); MONOCYTES % 9.9 % (2.0-8.0); NEUTROPHILS % 82.2 % (40.0-76.0); PLATELET 291 x1000/uL (130-400); RED BLOOD CELL COUNT 4.31 mill/uL (4.7-6.1); RED CELL DISTRIBUTION WIDTH 16.7 % (11.6-14.6); WHITE BLOOD COUNT 22.1 x1000/uL (4.5-11.0)
[2024-03-04 11:24] LABS: CLARITY URINE CLEAR (CLEAR); COLOR URINE YELLOW (YELLOW); GLUCOSE URINE NEGATIVE (NEGATIVE); KETONES URINE TRACE (NEGATIVE); LEUKOCYTE ESTERASE URINE NEGATIVE (NEGATIVE); NITRITE URINE NEGATIVE (NEGATIVE); OCCULT BLOOD URINE 1+ (NEGATIVE); PH URINE 6.5 (4.5-8.0); PROTEIN URINE TRACE (NEGATIVE); UROBILINOGEN URINE 0.2 E.U./dL (0.2-1.0)
[2024-03-04 11:34] LABS: INR 1.1; PROTHROMBIN TIME 11.8 sec (9.6-11.0)
[2024-03-04 11:35] LABS: BACTERIA URINE RARE; SQUAMOUS EPITHELIAL CELL URINE NONE SEEN /lpf (RARE/1+); WBC URINE 0-2 /hpf (0-2); YEAST URINE NONE SEEN
[2024-03-04 11:41] LABS: CHLORIDE 96 mEq/L (98-107); SODIUM 126 mEq/L (136-145)
[2024-03-04 11:42] LABS: CALCIUM 9.2 mg/dL (8.7-10.4); CARBON DIOXIDE 18 mEq/L (21-32)
[2024-03-04 11:47] LABS: CREATININE 0.8 mg/dL (0.6-1.3); GLUCOSE 106 mg/dL (70-105); UREA NITROGEN BLOOD 6 mg/dL (9-23)
[2024-03-04 11:55] LABS: *AMPHETAMINES SCREEN URINE NEGATIVE (NEGATIVE)
[2024-03-04 11:56] LABS: *BARBITURATES SCREEN URINE NEGATIVE (NEGATIVE); *BENZODIAZEPINES SCREEN URINE NEGATIVE (NEGATIVE); *COCAINE SCREEN URINE NEGATIVE (NEGATIVE); CANNABINOID URINE SCREEN PRESUMPTIVE POSITIVE (NEGATIVE); ECSTASY MDMA SCREEN URINE NEGATIVE (NEGATIVE); METHADONE URINE SCREEN NEGATIVE (NEGATIVE); OPIATES URINE SCREEN NEGATIVE (NEGATIVE); PHENCYCLIDINE URINE SCREEN NEGATIVE (NEGATIVE)
[2024-03-04 12:19] LABS: ETHANOL BLOOD < 10 mg/dL (<10); TROPONIN I HIGH SENSITIVITY < 4 ng/L (3.0-53)
[2024-03-04 14:00] VITALS: BP 167/88; PULSE 101; RESP 16
[2024-03-04] MEDS ORDERED: TOPUD PO (15:03)
[2024-03-04] MEDS ORDERED: PANT40SU MT (15:03)
== END 2024-03-04 16:33 | disposition home or self-care (01) ==
LOC: ER 09:48
DX: R10.84 Generalized abdominal pain (principal); F17.200 Nicotine dependence, unspecified, uncomplicated; I10 Essential (primary) hypertension; Z88.0 Allergy status to penicillin; Z79.899 Other long term (current) drug therapy; Z98.890 Other specified postprocedural states
CPT/HCPCS: 80305; 80048; 81003; 80320; 83690; 85025; 85610; 84484; 36415; 71045; 74018; 74176; 96365; 96375; 99285; J2405; C9113; J7030; G0480

== ENCOUNTER 2024-03-06 14:46 | Emergency (ER) | payer MEDICARE, OTHER ==
[~2024-03-06] VITALS: Ht 172.7 cm; Wt 75.0 kg
[~2024-03-06 14:46] MED LIST changes: +PANT40SU MT
[2024-03-06 14:48] VITALS: O2SAT 96
[2024-03-06] MEDS: MAGNESIUM/ALUMINUM HYDROXIDE/SIMETHICONE 30ML UDC PO STA (15:10)
[2024-03-06 15:21] LABS: HEMATOCRIT. 31.8 % (42.0-52.0); HEMOGLOBIN. 10.8 g/dL (14.0-18.0); MEAN CORPUSCULAR HEMOGLOBIN 27.2 pg (28.0-32.0); MEAN CORPUSCULAR HGB CONC 33.8 g/dL (31.0-37.0); MEAN CORPUSCULAR VOLUME 80.4 fL (80.0-94.0); MEAN PLATELET VOLUME 7.5 fl (7.4-10.4); PLATELET 355 x1000/uL (130-400); RED BLOOD CELL COUNT 3.96 mill/uL (4.7-6.1); RED CELL DISTRIBUTION WIDTH 16.5 % (11.6-14.6); WHITE BLOOD COUNT 22.3 x1000/uL (4.5-11.0)
[2024-03-06 15:23] LABS: DIFFERENTIAL COMMENT 1
[2024-03-06 15:25] LABS: CHLORIDE 95 mEq/L (98-107); SODIUM 124 mEq/L (136-145)
[2024-03-06 15:26] LABS: CARBON DIOXIDE 20 mEq/L (21-32)
[2024-03-06 15:27] LABS: CALCIUM 8.5 mg/dL (8.7-10.4)
[2024-03-06 15:31] LABS: CREATININE 0.7 mg/dL (0.6-1.3); GLUCOSE 128 mg/dL (70-105); UREA NITROGEN BLOOD 7 mg/dL (9-23)
[2024-03-06 15:39] LABS: ETHANOL BLOOD < 10 mg/dL (<10)
[2024-03-06 17:10] LABS: PLATELET ESTIMATE NORMAL
[2024-03-06 17:11] LABS: ANISOCYTOSIS 1+; OVALOCYTES 1+
[2024-03-06 17:15] LABS: CLARITY URINE CLEAR (CLEAR); COLOR URINE YELLOW (YELLOW); GLUCOSE URINE NEGATIVE (NEGATIVE); KETONES URINE NEGATIVE (NEGATIVE); LEUKOCYTE ESTERASE URINE NEGATIVE (NEGATIVE); NITRITE URINE NEGATIVE (NEGATIVE); OCCULT BLOOD URINE 1+ (NEGATIVE); PH URINE 6.5 (4.5-8.0); PROTEIN URINE TRACE (NEGATIVE); SPECIFIC GRAVITY URINE 1.009 (1.005-1.030); UROBILINOGEN URINE 0.2 E.U./dL (0.2-1.0)
[2024-03-06 17:27] LABS: *AMPHETAMINES SCREEN URINE NEGATIVE (NEGATIVE); *BARBITURATES SCREEN URINE NEGATIVE (NEGATIVE); *BENZODIAZEPINES SCREEN URINE NEGATIVE (NEGATIVE); *COCAINE SCREEN URINE NEGATIVE (NEGATIVE); CANNABINOID URINE SCREEN PRESUMPTIVE POSITIVE (NEGATIVE); METHADONE URINE SCREEN NEGATIVE (NEGATIVE); OPIATES URINE SCREEN NEGATIVE (NEGATIVE); PHENCYCLIDINE URINE SCREEN NEGATIVE (NEGATIVE)
[2024-03-06 17:42] LABS: BACTERIA URINE TRACE; SQUAMOUS EPITHELIAL CELL URINE RARE /lpf (RARE/1+); WBC URINE 0-2 /hpf (0-2)
[2024-03-06 18:14] LABS: ECSTASY MDMA SCREEN URINE NEGATIVE (NEGATIVE)
[2024-03-06] MEDS: KETOROLAC 15MG/ML VIAL IV ONE (18:23)
[2024-03-06] MEDS: SODIUM CHLORIDE 0.9% 500 ML IV ONE (18:23)
[2024-03-06] MEDS: KCL 20MEQ/100ML PREMIX 100 ML IV ONE (18:23)
[2024-03-06 20:20] VITALS: BP 154/77; PULSE 91; RESP 17; TEMP 98.5
== END 2024-03-06 20:20 | disposition home or self-care (01) ==
LOC: ER 14:56
DX: R10.9 Unspecified abdominal pain (principal); E87.6 Hypokalemia; E87.1 Hypo-osmolality and hyponatremia; I10 Essential (primary) hypertension; F14.10 Cocaine abuse, uncomplicated; F12.10 Cannabis abuse, uncomplicated; Z79.899 Other long term (current) drug therapy
CPT/HCPCS: 80305; 80048; 81003; 80320; 83690; 85025; 36415; 74176; 96365; 96375; 99285; J1885; J3480; J7040; Z7610 ×2; G0480

== ENCOUNTER 2024-05-14 09:20 | Emergency (ER) | payer MEDICARE, OTHER ==
[~2024-05-14] VITALS: Ht 170.2 cm; Wt 75.0 kg
[2024-05-14 09:25] VITALS: O2SAT 98
[2024-05-14 10:20] LABS: BASOPHILS % 1.3 % (0.0-2.0); EOSINOPHILS % 1.4 % (0.0-5.0); HEMATOCRIT. 36.7 % (42.0-52.0); HEMOGLOBIN. 12.2 g/dL (14.0-18.0); LYMPHOCYTES % 28.7 % (20.0-50.0); MEAN CORPUSCULAR HEMOGLOBIN 27.7 pg (28.0-32.0); MEAN CORPUSCULAR HGB CONC 33.3 g/dL (31.0-37.0); MEAN CORPUSCULAR VOLUME 83.4 fL (80.0-94.0); MEAN PLATELET VOLUME 7.6 fl (7.4-10.4); MONOCYTES % 6.4 % (2.0-8.0); NEUTROPHILS % 62.2 % (40.0-76.0); PLATELET 347 x1000/uL (130-400); RED CELL DISTRIBUTION WIDTH 17.3 % (11.6-14.6); WHITE BLOOD COUNT 9.8 x1000/uL (4.5-11.0)
[2024-05-14 10:22] LABS: CHLORIDE 105 mEq/L (98-107); POTASSIUM 3.5 mEq/L (3.5-5.1); SODIUM 131 mEq/L (136-145)
[2024-05-14] MEDS: MORPHINE SULFATE 4 MG/ML INJ (FOR IV/IM USE) IV ONE ×2 (10:22→11:32)
[2024-05-14] MEDS: ONDANSETRON HCL 4MG/2ML INJ IV ONE (10:22)
[2024-05-14] MEDS: LACTATED RINGERS 1,000 ML IV SCH (10:22)
[2024-05-14 10:24] LABS: CALCIUM 9.4 mg/dL (8.7-10.4); CARBON DIOXIDE 21 mEq/L (21-32)
[2024-05-14 10:29] LABS: CREATININE 0.9 mg/dL (0.6-1.3); GLUCOSE 96 mg/dL (70-105); UREA NITROGEN BLOOD 5 mg/dL (9-23)
[2024-05-14 10:30] LABS: ALANINE AMINOTRANSFERASE 8 IU/L (10-49)
[2024-05-14 10:31] LABS: ALBUMIN 4.3 g/dL (3.2-4.8); ASPARTATE AMINOTRANSFERASE 16 IU/L (<34); BILIRUBIN TOTAL 0.3 mg/dL (0.1-1.0); PROTEIN TOTAL 7.7 g/dL (6.0-8.3)
[2024-05-14 10:33] LABS: BILIRUBIN DIRECT < 0.1 mg/dL (<=3.0)
[2024-05-14] MEDS: ONDANSETRON HCL 4MG/2ML INJ IV PRN (14:12)
[2024-05-14] MEDS: HYDRALAZINE 20MG/ML VIAL IV NR (14:12)
[2024-05-14 15:42] VITALS: BP 148/84; PULSE 94; RESP 18; TEMP 98.3
== END 2024-05-14 15:48 | disposition short-term general hospital (02) ==
LOC: ER 09:20 → EDBEDREQTM 14:05 → EDBEDREQ 14:05 → ER 15:48
DX: R10.84 Generalized abdominal pain (principal); R11.2 Nausea with vomiting, unspecified; I10 Essential (primary) hypertension; Z79.899 Other long term (current) drug therapy; Z88.0 Allergy status to penicillin
CPT/HCPCS: 80076; 80048; 83690; 85025; 36415; 74176; 96361; 96374; 96375; 96376; 99285; J0360; J2405; J2270; Z7610 ×4

== ENCOUNTER 2024-06-15 13:41 | Emergency (ER) | payer MEDICARE, OTHER ==
[~2024-06-15] VITALS: Ht 180.3 cm; Wt 72.0 kg
[2024-06-15 13:46] VITALS: O2SAT 96
[2024-06-15] MEDS ORDERED: DICYCLOMINE 10 MG/5 ML ORAL SYR PO STA (13:46)
[2024-06-15] MEDS: DICYCLOMINE HCL 10MG CAPSULE PO NR (14:27)
[2024-06-15] MEDS: MAGNESIUM/ALUMINUM HYDROXIDE/SIMETHICONE 30ML UDC PO STA (14:27)
[2024-06-15 15:29] LABS: DIFFERENTIAL COMMENT 1; HEMATOCRIT. 37.3 % (42.0-52.0); HEMOGLOBIN. 12.4 g/dL (14.0-18.0); MEAN CORPUSCULAR HGB CONC 33.3 g/dL (31.0-37.0); MEAN CORPUSCULAR VOLUME 80.9 fL (80.0-94.0); MEAN PLATELET VOLUME 8.3 fl (7.4-10.4); PLATELET 305 x1000/uL (130-400); RED BLOOD CELL COUNT 4.61 mill/uL (4.7-6.1); RED CELL DISTRIBUTION WIDTH 17.1 % (11.6-14.6); WHITE BLOOD COUNT 15.3 x1000/uL (4.5-11.0)
[2024-06-15 15:30] LABS: CHLORIDE 99 mEq/L (98-107); POTASSIUM 3.6 mEq/L (3.5-5.1); SODIUM 128 mEq/L (136-145)
[2024-06-15 15:31] LABS: CALCIUM 9.7 mg/dL (8.7-10.4); CARBON DIOXIDE 18 mEq/L (21-32)
[2024-06-15 15:36] LABS: CREATININE 0.7 mg/dL (0.6-1.3); GLUCOSE 123 mg/dL (70-105); UREA NITROGEN BLOOD 6 mg/dL (9-23)
[2024-06-15 15:38] LABS: ALANINE AMINOTRANSFERASE 10 IU/L (10-49); ALBUMIN 4.6 g/dL (3.2-4.8); ASPARTATE AMINOTRANSFERASE 21 IU/L (<34); BILIRUBIN DIRECT 0.2 mg/dL (<=3.0); BILIRUBIN TOTAL 0.7 mg/dL (0.1-1.0); PROTEIN TOTAL 8.4 g/dL (6.0-8.3)
[2024-06-15 16:08] LABS: PLATELET ESTIMATE NORMAL
[2024-06-15] MEDS: MORPHINE SULFATE 4 MG/ML INJ (FOR IV/IM USE) IV STA (16:41)
[2024-06-15] MEDS: ONDANSETRON HCL 4MG/2ML INJ IV STA (16:41)
[2024-06-15 17:50] VITALS: BP 119/66; PULSE 84; RESP 15; TEMP 36.89184; O2SAT 97
== END 2024-06-15 17:57 | disposition home or self-care (01) ==
LOC: ER 13:41
DX: R10.33 Periumbilical pain (principal); R11.2 Nausea with vomiting, unspecified; I10 Essential (primary) hypertension; Z88.0 Allergy status to penicillin; Z79.899 Other long term (current) drug therapy
CPT/HCPCS: 80076; 80048; 85025; 36415; 71045; 96374; 96375; 99284; J2405; J2270; Z7610

== ENCOUNTER 2024-08-31 10:45 | Emergency (ER) | payer MEDICARE, OTHER ==
[~2024-08-31] VITALS: Ht 172.7 cm; Wt 75.0 kg
[~2024-08-31 10:45] MED LIST changes: -AMLO5TAB4 PO; +AMLO5TAB5 PO
[2024-08-31 10:48] VITALS: O2SAT 98
[2024-08-31] MEDS: SODIUM CHLORIDE 0.9% 1,000 ML IV ONE (11:20)
[2024-08-31] MEDS: MORPHINE SULFATE 4 MG/ML INJ (FOR IV/IM USE) IV STA (11:20)
[2024-08-31] MEDS: ONDANSETRON HCL 4MG/2ML INJ IV STA (11:20)
[2024-08-31 11:38] LABS: BASOPHILS % 0.7 % (0.0-2.0); EOSINOPHILS % 0.4 % (0.0-5.0); HEMATOCRIT. 34.7 % (42.0-52.0); HEMOGLOBIN. 11.2 g/dL (14.0-18.0); MEAN CORPUSCULAR HEMOGLOBIN 27.1 pg (28.0-32.0); MEAN CORPUSCULAR HGB CONC 32.2 g/dL (31.0-37.0); MEAN CORPUSCULAR VOLUME 84.1 fL (80.0-94.0); MEAN PLATELET VOLUME 7.5 fl (7.4-10.4); NEUTROPHILS % 72.9 % (40.0-76.0); PLATELET 311 x1000/uL (130-400); RED BLOOD CELL COUNT 4.12 mill/uL (4.7-6.1); RED CELL DISTRIBUTION WIDTH 17.3 % (11.6-14.6); WHITE BLOOD COUNT 13.3 x1000/uL (4.5-11.0)
[2024-08-31 11:44] LABS: CHLORIDE 105 mEq/L (98-107); POTASSIUM 3.2 mEq/L (3.5-5.1); SODIUM 133 mEq/L (136-145)
[2024-08-31 11:45] LABS: CARBON DIOXIDE 21 mEq/L (21-32)
[2024-08-31 11:46] LABS: CALCIUM 9.1 mg/dL (8.7-10.4)
[2024-08-31 11:50] LABS: CREATININE 0.9 mg/dL (0.6-1.3); GLUCOSE 116 mg/dL (70-105); INR 0.9; PROTHROMBIN TIME 10.4 sec (9.6-11.0)
[2024-08-31 11:51] LABS: UREA NITROGEN BLOOD 9 mg/dL (9-23)
[2024-08-31 11:52] LABS: ALANINE AMINOTRANSFERASE < 7 IU/L (10-49); ASPARTATE AMINOTRANSFERASE 15 IU/L (<34)
[2024-08-31 11:53] LABS: BILIRUBIN TOTAL 0.3 mg/dL (0.1-1.0); PROTEIN TOTAL 7.7 g/dL (6.0-8.3)
[2024-08-31 11:54] LABS: BILIRUBIN DIRECT < 0.1 mg/dL (<=3.0)
[2024-08-31 12:01] LABS: CLARITY URINE CLEAR (CLEAR); COLOR URINE YELLOW (YELLOW); GLUCOSE URINE NEGATIVE (NEGATIVE); KETONES URINE NEGATIVE (NEGATIVE); LEUKOCYTE ESTERASE URINE NEGATIVE (NEGATIVE); NITRITE URINE NEGATIVE (NEGATIVE); OCCULT BLOOD URINE NEGATIVE (NEGATIVE); PROTEIN URINE NEGATIVE (NEGATIVE); UROBILINOGEN URINE 0.2 E.U./dL (0.2-1.0)
[2024-08-31] MEDS: MORPHINE SULFATE 4 MG/ML INJ (FOR IV/IM USE) IV ONE (13:20)
[2024-08-31] MEDS ORDERED: DIPHENHYDRAMINE 25MG CAPSULE PO PRN (13:30)
[2024-08-31] MEDS ORDERED: ACETAMINOPHEN 325MG TABLET PO PRN (13:30)
[2024-08-31] MEDS ORDERED: IPRATROPIUM/ALBUTEROL 0.5-3(2.5)MG/3ML NEB NEB PRN (13:30)
[2024-08-31] MEDS ORDERED: HYDROCODONE/ACETAMINOPHEN 5/325MG TABLET PO PRN (13:30)
[2024-08-31] MEDS ORDERED: DOCUSATE SODIUM 100MG CAPSULE PO PRN (13:30)
[2024-08-31] MEDS ORDERED: MAGNESIUM/ALUMINUM HYDROXIDE/SIMETHICONE 30ML UDC PO PRN (13:30)
[2024-08-31] MEDS ORDERED: ONDANSETRON HCL 4MG/2ML INJ IV PRN (13:30)
[2024-08-31] MEDS ORDERED: SODIUM CHLORIDE 0.9% 1,000 ML IV SCH (13:30)
[2024-08-31] MEDS ORDERED: CLONIDINE 0.1MG TABLET PO PRN (13:30)
[2024-08-31 13:35] VITALS: BP 170/80; PULSE 91; RESP 22; TEMP 37.16964; O2SAT 100
[2024-08-31] MEDS ORDERED: METRONIDAZOLE 500MG TABLET PO SCH (14:00)
[2024-08-31 14:30] LABS: *AMPHETAMINES SCREEN URINE NEGATIVE (NEGATIVE)
[2024-08-31] MEDS ORDERED: LEVOFLOXACIN 500MG PREMIX 100 ML IV SCH (14:30)
[2024-08-31 14:32] LABS: *BARBITURATES SCREEN URINE NEGATIVE (NEGATIVE); *BENZODIAZEPINES SCREEN URINE NEGATIVE (NEGATIVE); *COCAINE SCREEN URINE NEGATIVE (NEGATIVE); CANNABINOID URINE SCREEN PRESUMPTIVE POSITIVE (NEGATIVE); ECSTASY MDMA SCREEN URINE NEGATIVE (NEGATIVE); METHADONE URINE SCREEN NEGATIVE (NEGATIVE); OPIATES URINE SCREEN PRESUMPTIVE POSITIVE (NEGATIVE); PHENCYCLIDINE URINE SCREEN NEGATIVE (NEGATIVE)
[2024-08-31] MEDS ORDERED: HYDRALAZINE HCL 25MG TABLET PO SCH (17:00)
[2024-08-31] MEDS ORDERED: ZOLPIDEM TARTRATE 5MG TABLET PO PRN (21:00)
[2024-08-31] MEDS ORDERED: ATORVASTATIN CALCIUM 20MG TABLET PO SCH (21:00)
[2024-09-01] MEDS ORDERED: ENOXAPARIN 40MG/0.4ML SYR SUBCUT SCH (09:00)
[2024-09-01] MEDS ORDERED: PANTOPRAZOLE SODIUM 40 MG/VIAL IV SCH (09:00)
[2024-09-01] MEDS ORDERED: LISINOPRIL 10MG TABLET PO SCH (09:00)
[2024-09-01] MEDS ORDERED: AMLODIPINE 5MG TABLET PO SCH (09:00)
== END 2024-08-31 14:02 | disposition short-term general hospital (02) ==
LOC: ER 10:45 → EDBEDREQ 11:09 → ER 14:02
DX: G89.29 Other chronic pain (principal); R10.9 Unspecified abdominal pain; I10 Essential (primary) hypertension; Z88.0 Allergy status to penicillin; Z79.899 Other long term (current) drug therapy
CPT/HCPCS: 80076; 80305; 80048; 81003; 83690; 85025; 85610; 36415; 96361; 96374; 96375; 96376; 99285; J2405; J2270; J7030; Z7610 ×3

== ENCOUNTER 2025-05-19 09:51 | Inpatient (IN) | payer MEDICARE, MEDICAID ==
[~2025-05-19] VITALS: Ht 167.6 cm; Wt 64.4 kg
[~2025-05-19 09:51] MED LIST changes: -AMLO10TA80 MT; -CIME800T MT; -DIPH25CA83 PO; -FAMO-135 PO; -LISI10TA26 PO; -LOSA100T33 MT; -METO-293 MT; -OMEP10CA5 MT; -OMEP20CA14 MT; -OMEP20TA23 PO; -ONDA4TAB5 MT; -ONDA4TAB5 PO; -POTA-354 MT; -PROC5TAB55 MT; -PROT40 MT; -RANI-655 PO; -TOPUD PO
[2025-05-19 09:53] VITALS: O2SAT 100
[2025-05-19 10:36] LABS: BASOPHILS % 1.1 % (0.0-2.0); EOSINOPHILS % 0.2 % (0.0-5.0); HEMATOCRIT. 38.5 % (42.0-52.0); HEMOGLOBIN. 12.5 g/dL (14.0-18.0); LYMPHOCYTES % 27.2 % (20.0-50.0); MEAN PLATELET VOLUME 7.8 fl (7.4-10.4); MONOCYTES % 6.5 % (2.0-8.0); NEUTROPHILS % 65.0 % (40.0-76.0); PLATELET 264 x1000/uL (130-400); RED BLOOD CELL COUNT 4.64 mill/uL (4.7-6.1); RED CELL DISTRIBUTION WIDTH 17.2 % (11.6-14.6)
[2025-05-19 10:53] LABS: CREATININE 1.0 mg/dL (0.6-1.3); TROPONIN I HIGH SENSITIVITY < 4 ng/L (3.0-53); UREA NITROGEN BLOOD 10 mg/dL (9-23)
[2025-05-19 10:55] LABS: ASPARTATE AMINOTRANSFERASE 11 IU/L (<34); BILIRUBIN DIRECT 0.1 mg/dL (<=3.0); BILIRUBIN TOTAL 0.5 mg/dL (0.1-1.0); PROTEIN TOTAL 7.5 g/dL (6.0-8.3)
[2025-05-19] MEDS: SODIUM CHLORIDE 0.9% 1,000 ML IV ONE (11:08)
[2025-05-19] MEDS: METOCLOPRAMIDE HCL 10MG/2ML VIAL IV ONE (11:08)
[2025-05-19 12:00] LABS: CLARITY URINE CLEAR (CLEAR); COLOR URINE YELLOW (YELLOW); GLUCOSE URINE NEGATIVE (NEGATIVE); KETONES URINE 1+ (NEGATIVE); LEUKOCYTE ESTERASE URINE NEGATIVE (NEGATIVE); NITRITE URINE NEGATIVE (NEGATIVE); OCCULT BLOOD URINE NEGATIVE (NEGATIVE); PH URINE 8.0 (4.5-8.0); PROTEIN URINE NEGATIVE (NEGATIVE); SPECIFIC GRAVITY URINE 1.010 (1.005-1.030); UROBILINOGEN URINE 0.2 E.U./dL (0.2-1.0)
[2025-05-19] MEDS ORDERED: HYDRALAZINE 20MG/ML VIAL IV PRN (13:30)
[2025-05-19] MEDS ORDERED: ACETAMINOPHEN 325MG TABLET PO PRN ×2 (13:30)
[2025-05-19] MEDS: ONDANSETRON HCL 4MG/2ML INJ IV ONE (13:30)
[2025-05-19] MEDS ORDERED: CAPSAICIN 0.075% CREAM 57GM TOP PRN (13:30)
[2025-05-19] MEDS ORDERED: IPRATROPIUM/ALBUTEROL 0.5-3(2.5)MG/3ML NEB HHN PRN (13:30)
[2025-05-19] MEDS ORDERED: KETOROLAC 15MG/ML VIAL IV PRN (13:30)
[2025-05-19] MEDS ORDERED: HALOPERIDOL 2MG TABLET PO PRN (13:30)
[2025-05-19] MEDS ORDERED: DOCUSATE SODIUM 100MG CAPSULE PO PRN (13:30)
[2025-05-19] MEDS ORDERED: ONDANSETRON HCL 4MG/2ML INJ IV PRN (13:30)
[2025-05-19] MEDS ORDERED: MAGNESIUM/ALUMINUM HYDROXIDE/SIMETHICONE 30ML UDC PO PRN (13:30)
[2025-05-19] MEDS ORDERED: LORAZEPAM 2MG/ML UD SYRINGE IV PRN (13:30)
[2025-05-19] MEDS ORDERED: GUAIFENESIN 200MG/10ML SUGAR FREE UDC PO PRN (13:30)
[2025-05-19] MEDS: HALOPERIDOL LACTATE 5MG/ML VIAL IM NR (14:01)
[2025-05-19] MEDS: DEXT 5%/LACTATED RINGERS 1,000 ML IV ONE (14:50)
[2025-05-19] MEDS: CAPSAICIN 0.075% CREAM 57GM TOP NR (14:50)
[2025-05-19] MEDS: KCL 20MEQ/100ML PREMIX 100 ML IV SCH (14:52)
[2025-05-19] MEDS: PANTOPRAZOLE SODIUM 40 MG/VIAL IV SCH (14:55)
[2025-05-19 15:49] VITALS: BP 168/78; PULSE 91; RESP 20; TEMP 36.8072
[2025-05-19 16:00] VITALS: BP 168/78; PULSE 91; RESP 20; TEMP 36.8; O2SAT 97
[2025-05-19] MEDS: SUCRALFATE 1G TABLET PO SCH (16:37)
[2025-05-19] MEDS: CLONIDINE 0.1MG TABLET PO PRN (16:37)
[2025-05-19 17:24] LABS: *AMPHETAMINES SCREEN URINE NEGATIVE (NEGATIVE); *BARBITURATES SCREEN URINE NEGATIVE (NEGATIVE); *BENZODIAZEPINES SCREEN URINE NEGATIVE (NEGATIVE); *COCAINE SCREEN URINE NEGATIVE (NEGATIVE); CANNABINOID URINE SCREEN PRESUMPTIVE POSITIVE (NEGATIVE); ECSTASY MDMA SCREEN URINE NEGATIVE (NEGATIVE); METHADONE URINE SCREEN NEGATIVE (NEGATIVE); OPIATES URINE SCREEN NEGATIVE (NEGATIVE); PHENCYCLIDINE URINE SCREEN NEGATIVE (NEGATIVE)
[2025-05-19 20:00] VITALS: BP 158/68; PULSE 88; RESP 20; TEMP 37; O2SAT 98
[2025-05-20] VITALS: BP 144/62; PULSE 82; RESP 18; TEMP 36.8; O2SAT 98
[2025-05-20 04:00] VITALS: BP 152/69; PULSE 78; RESP 18; TEMP 36.8; O2SAT 98
[2025-05-20 08:00] VITALS: BP 155/73; PULSE 79; RESP 17; TEMP 36.6; O2SAT 97
[2025-05-20] MEDS: MULTIVITAMINS,THER W-MINERALS TABLET PO SCH (09:54)
[2025-05-20] MEDS: FOLIC ACID 1MG TABLET PO SCH (09:54)
[2025-05-20] MEDS: THIAMINE HCL 100MG TABLET PO SCH (09:54)
== END 2025-05-20 10:05 | disposition left against medical advice (07) | DRG 305 ==
LOC: ER 10:13 → 6WST 13:11 → EDBEDREQTM 13:28 → EDBEDREQ 13:28 → ENRESERV 13:55
PROVIDERS: ADMIT Internal Medicine; ATTEND Internal Medicine
DX: I16.0 Hypertensive urgency (principal); K29.70 Gastritis, unspecified, without bleeding; R10.9 Unspecified abdominal pain; G89.29 Other chronic pain; R11.2 Nausea with vomiting, unspecified; F12.90 Cannabis use, unspecified, uncomplicated; D72.829 Elevated white blood cell count, unspecified; D64.9 Anemia, unspecified; E87.6 Hypokalemia; I10 Essential (primary) hypertension; Z96.653 Presence of artificial knee joint, bilateral; K21.9 Gastro-esophageal reflux disease without esophagitis; Z53.29 Procedure and treatment not carried out because of patient's decision for other reasons; R73.9 Hyperglycemia, unspecified; Z86.73 Personal history of transient ischemic attack (TIA), and cerebral infarction without residual deficits; Z79.899 Other long term (current) drug therapy; Z86.718 Personal history of other venous thrombosis and embolism; Z88.0 Allergy status to penicillin
CPT/HCPCS: 36415; 71045; 80048; 80076; 80305; 81003; 83036; 83735; 84145; 84484; 85025; 85044; 93005; 99285; J1630; J2405; J2470; J2765; J3480; J7030